=== PATIENT | male | born 1945 | race Two or more races ===

== ENCOUNTER 2016-07-31 15:30 | Inpatient (IN) | payer OTHER, MEDICAID ==
[~2016-07-31] VITALS: Ht 162.6 cm; Wt 76.2 kg
--- NOTE | 2016-07-31 15:31 | NUR ---
AAOX3, BIBRA 99 C/O SOB SPO2=93% ON RA, ALSO C/O RIGHT SIDED CP SINCE LAST NIGHT. BREATHING TREATMENT X 1 IN THE FIELD. SPO2=97% AFTER THE BREATHING TREATMENT. PLACED ON MONITOR AND HOSPITAL GOWN. DR TOM AT FOR EVAL.
[2016-07-31] MEDS ORDERED: ALBUTEROL FS 2.5 MG/3 ML VIAL.NEB ONE (15:38)
[2016-07-31] MEDS ORDERED: IPRATROPIUM NEB FS 0.5 MG/2.5 ML AMPUL.NEB ONE (15:39)
--- NOTE | 2016-07-31 15:47 | NUR ---
BREATHING TREATMENT AT
[2016-07-31 15:58] LABS: BASOPHILS # (AUTO) 0.1 /CMM (0.0-0.2); BASOPHILS % (AUTO) 0.9 % (0.0-2.0); EOSINOPHILS # (AUTO) 0.5 /CMM (0.0-0.7); EOSINOPHILS % (AUTO) 6.3 % (0.0-6.0); HEMATOCRIT 39 % (39-51); HEMOGLOBIN 13.2 g/dL (13.5-17.5); LYMPHOCYTES # (AUTO) 3.4 /CMM (0.8-4.8); LYMPHOCYTES % (AUTO) 42.4 % (20.0-44.0); MEAN CORPUSCULAR HEMOGLOBIN 31 PG (26.0-33.0); MEAN CORPUSCULAR HGB CONC 34 g/dl (31.0-36.0); MEAN CORPUSCULAR VOLUME 90 fL (80-96); MONOCYTES # (AUTO) 0.8 /CMM (0.1-1.30); MONOCYTES % (AUTO) 9.2 % (2.0-12.0); NEUTROPHILS # (AUTO) 3.4 /CMM (1.8-8.9); NEUTROPHILS % (AUTO) 41.2 % (43.0-81.0); PLATELET COUNT (AUTO) 291 /CMM (150-450); RDW COEFFICIENT OF VARIATION 15.1 (11.5-15.0); RED BLOOD CELL COUNT(AUTO) 4.33 MIL/uL (4.5-6.0); WHITE BLOOD COUNT (AUTO) 8.2 K/uL (4.3-11.0)
[2016-07-31] MEDS ORDERED: ALBUTEROL FS 2.5 MG/3 ML VIAL.NEB NEB ONE (16:00)
[2016-07-31] MEDS ORDERED: IPRATROPIUM NEB FS 0.5 MG/2.5 ML AMPUL.NEB NEB ONE (16:00)
[2016-07-31 16:01] LABS: CALCIUM, SERUM 8.7 mg/dL (8.5-10.1); CARBON DIOXIDE 23 mmol/L (21-32); CHLORIDE 104 mmol/L (98-107); CREATININE 1.4 mg/dL (0.6-1.3); GLUCOSE 115 mg/dL (74-106); SODIUM SERUM 137 mmol/L (136-145); UREA NITROGEN, BLOOD 20 mg/dL (7-18)
[2016-07-31 16:05] LABS: INR 1.01 (0.87-1.13); PROTHROMBIN TIME 10.5 SECS (9.5-12.7)
[2016-07-31 16:10] LABS: TROPONIN I < 0.017 ng/mL (0.00-0.056)
[2016-07-31 16:14] LABS: ALANINE AMINOTRANSFERASE 40 U/L (12-78); ALBUMIN 3.8 g/dL (3.4-5.0); ALKALINE PHOSPHATASE 80 U/L (46-116); ASPARTATE AMINOTRANSFERASE 22 U/L (15-37); B-TYPE NATRIURETIC PEPTIDE 26 PG/ML (0-125); BILIRUBIN,DIRECT 0.1 mg/dL (0.0-0.2); BILIRUBIN,TOTAL 0.2 mg/dL (0.2-1.0); TOTAL PROTEIN, SERUM 7.8 g/dL (6.4-8.2)
--- NOTE | 2016-07-31 16:53 | NUR ---
PAGED LATHE SANDER FOR PANEL JONNIE MARCUS
--- NOTE | 2016-07-31 16:53 | NUR ---
CALLED NURSING DIRECTOR OF CARDIOLOGY SERVICE LINE FOR TELE BED
--- NOTE | 2016-07-31 17:06 | NUR ---
MED RECON/PATTERN CHAIN BUILDER NOTE: UNABLE TO UPDATE MED RECON AT THIS TIME. PATIENT UNABLE TO RECALL MEDS. SPOKE WITH CAREGIVER AT BEDSIDE AND WILL BRING ALL MEDICATION SUPPLY FROM HOME. CALLED AND FAXED AUTHORIZATION TO DISCLOSE HEALTH INFORMATION TO [facility]. WAITING FOR REPLY.
--- NOTE | 2016-07-31 17:35 | NUR ---
PATIENT TRANSPORTED FOR CT
--- NOTE | 2016-07-31 17:41 | NUR ---
TELE [phone]
[2016-07-31] MEDS ORDERED: GABA-534 PO (18:06)
[2016-07-31] MEDS ORDERED: BENA40TA2 PO (18:06)
[2016-07-31] MEDS ORDERED: FLUC100T8 PO (18:06)
[2016-07-31] MEDS ORDERED: CITA20TA19 PO (18:06)
[2016-07-31] MEDS ORDERED: CHOL100044 PO (18:06)
[2016-07-31] MEDS ORDERED: TOPI-37 PO (18:06)
[2016-07-31] MEDS ORDERED: SOLI5TAB PO (18:06)
[2016-07-31] MEDS ORDERED: VITA1TAB56 PO (18:06)
[2016-07-31] MEDS ORDERED: ABAC1TAB15 PO (18:06)
[2016-07-31] MEDS ORDERED: CARV3.122 PO (18:06)
[2016-07-31] MEDS ORDERED: OMEG500C PO (18:06)
[2016-07-31] MEDS ORDERED: MIRT15TA7 PO (18:06)
[2016-07-31] MEDS ORDERED: PANT40TA4 PO (18:06)
[2016-07-31] MEDS ORDERED: BUPR150T10 PO (18:06)
[2016-07-31] MEDS ORDERED: METF500T4 PO (18:06)
[2016-07-31] MEDS ORDERED: ROSU20TA PO (18:06)
[2016-07-31] MEDS ORDERED: ASPI-605 PO (18:06)
--- NOTE | 2016-07-31 18:06 | NUR ---
REPORT GIVEN TO MARLINE MARCUS FOR GERARDO TELE 327
--- NOTE | 2016-07-31 18:23 | NUR ---
PARATRANSIT OPERATOR NOTES PATIENT RECEIVED FROM ER. NO SOB OR DISTRESS NOTED AT THIS TIME. PATIENT DENIES PAIN. PATIENT ORIENTED TO ROOM AND CALL LIGHT. BELONGINGS CHECKED AND ACCOUNTED FOR. HEART RATE SR 86. BED IN A LOW POSITION, CALL LIGHT WITHIN PATIENT REACH. WILL CONTINUE TO MONITOR.
[2016-07-31 18:28] VITALS: BP 118/77
--- NOTE | 2016-07-31 19:30 | NUR ---
TELE DRAW HAND INITIAL NOTES RECEIVED REPORT FRO BRENT NURSE AMRIT, CHECKED PT HE'S AWAKE AND ALERT WATCHING TV AT THIS TIME. DENIES ANY PAIN OR ANY DISCOMFORT. HE STATES HE'S HUNGRY OFFERED SANDWICH AND JUICE AND HE SAID "OK ". ASSESSMENT DONE AND RECORDED. AWARE WHERE HE AT AND HE STATED TOO THAT HE'S HERE LAST WEEK ONLY. O2 STARTED VIA NC AT 2 LITERS AND HE STATES "THANK YOU FEEL MUCH BETTER. ENCOURAGE HIM TO USED THE CALL LIGHT SYSTEM IF HE NEEDS SOME HELPED. KEPT HIM WARM AND COMFORTABLE AT ALL TIMES. ISOLATION PRECAUTION IMPLEMENTED AND OBSERVED. PLACE CALL LIGHT AT REACH.
[2016-07-31 20:00] VITALS: BP 109/68
[2016-07-31] MEDS ORDERED: ONDANSETRON HCL/PF 4 MG/2 ML VIAL IVP PRN (20:30)
[2016-07-31] MEDS ORDERED: ACETAMINOPHEN 325 MG TABLET PO PRN (20:30)
[2016-07-31] MEDS ORDERED: SUCRALFATE 1 G/10 ML UDC PO ONE (21:00)
[2016-07-31] MEDS ORDERED: IV SET PRIMARY PUMP SET 1 EA INFUS.SET MC ONE (21:27)
[2016-07-31] MEDS ORDERED: SECONDARY IV SET 1 EA INFUS.SET MC ONE (21:27)
[2016-07-31] MEDS: TOPIRAMATE 100 MG TABLET PO SCH (21:54)
[2016-07-31] MEDS: AZITHROMYCIN 250 MG TABLET PO SCH (21:54)
[2016-07-31] MEDS: MIRTAZAPINE 15 MG TABLET PO SCH (21:54)
[2016-07-31] MEDS: PANTOPRAZOLE 40 MG TABLET.DR PO SCH (21:55)
[2016-07-31] MEDS: GABAPENTIN 300 MG CAPSULE PO SCH (21:55)
--- NOTE | 2016-07-31 21:55 | NUR ---
GLAUCOMA SPECIALIST/NOTES ROUTINE MEDS GIVEN ORDERED. TOLERATED WELL AND EDUCATED PT THE POSSIBLE SIDE EFFECT OF HIS MEDICATION . IVF NS STARTED ALSO NS AT 75ML/HR . KEPT HIM COMFORTABLE AT ALL TIMES. TELE SR PER MONITOR.
[2016-07-31] MEDS: ENOXAPARIN SODIUM 40 MG/0.4 ML DISP.SYRIN SQ SCH (21:56)
[2016-07-31] MEDS: IV NS 0.9% 1,000 ML IV PRN (21:57)
[2016-07-31] MEDS ORDERED: ATORVASTATIN 10 MG TABLET PO SCH (22:00)
[2016-07-31] MEDS ORDERED: ZOLPIDEM TARTRATE 5 MG TABLET PO PRN (22:00)
[2016-07-31] MEDS: CEFTRIAXONE 1 G in IV D5W 50 ML IV SCH (22:24)
--- NOTE | 2016-07-31 22:30 | NUR ---
PATIENT SERVICE SPECIALIST/NOTES AMBIEN GIVEN PER PT REQUESTED AND SAFETY PRECAUTION APPLIED. EDUCATE PT REGARDING HIS MEDICATION AND HE UNDERSTOOD WELL. WILL CONTINUE TO MONITOR.
[2016-08-01] VITALS: BP 138/78
--- NOTE | 2016-08-01 | NUR ---
SATELLITE PROJECT SITE MONITOR/NOTES PT SLEEPING AT THIS TIME BUT AROUSES TO TOUCH AND STIMULI. NO SOB NOTED. IVF STILL INFUSING ON HIS LEFT HAND, ROCEPHIN WAS DONE , NO ADVERSE REACTION NOTED. TELE SR PER MONITOR. KEPT HIM WARM AND COMFORTABLE AT ALL TIMES WILL CONTINUE TO MONITOR,PLACE CALL LIGHT AT REACH.
[2016-08-01] MEDS: ALBUTEROL FS 2.5 MG/0.5 ML VIAL.NEB NEB SCH ×5 (02:19→23:07)
[2016-08-01] MEDS: IPRATROPIUM NEB FS 0.5 MG/2.5 ML AMPUL.NEB NEB SCH ×5 (02:19→23:07)
[2016-08-01 04:37] VITALS: BP 120/68
--- NOTE | 2016-08-01 06:51 | NUR ---
MICROSOFT DYNAMICS AX DEVELOPER/CLOSING NOTES PT BACK TO SLEEP AFTER NEW IV LINE RE-INSERTED ON HIS RIGHT FOREARM GAUGE 22 AFTER PT ACCIDENTALLY PULLED OUT HIS IV LINE IN HIS LEFT HAND. IVF STILL INFUSING. STABLE MONET THE NIGHT AND SLEPT WELL. ALL DUE MEDS GIVEN AND ALL NEEDS MET. TELE SR PER MONITOR. KEPT HIM WARM AND COMFORTABLE AT ALL TIMES. PLACE CALL LIGHT AT REACH. ENDORSE TO AM NURSE FOR CONTINUITY OF CARE.
[2016-08-01] MEDS ORDERED: PANTOPRAZOLE 40 MG TABLET.DR PO SCH ×2 (07:30)
[2016-08-01 08:00] VITALS: BP 125/70
--- NOTE | 2016-08-01 08:00 | NUR ---
RN OPENING NOTES RECEIVED PATIENT IN BED SLEEPING, AROUSES EASILY. ALERT AND ORIENTED X3. ON OXYGEN 2L VIA NC. RESPIRATIONS EVEN AND UNLABORED. NO ACUTE DISTRESS NOTED. NO SOB NOTED. IV SITE INTACT AND PATENT. BED IN LOWEST POSITION, SEMIFOWLERS. CALL LIGHT WITHIN REACH. WILL CONTINUE TO MONITOR.
[2016-08-01 08:03] LABS: BASOPHILS % (AUTO) 0.5 % (0.0-2.0); EOSINOPHILS # (AUTO) 0.4 /CMM (0.0-0.7); EOSINOPHILS % (AUTO) 5.4 % (0.0-6.0); HEMATOCRIT 35 % (39-51); HEMOGLOBIN 11.9 g/dL (13.5-17.5); LYMPHOCYTES # (AUTO) 2.5 /CMM (0.8-4.8); LYMPHOCYTES % (AUTO) 34.9 % (20.0-44.0); MEAN CORPUSCULAR HEMOGLOBIN 31 PG (26.0-33.0); MEAN CORPUSCULAR HGB CONC 34 g/dl (31.0-36.0); MEAN CORPUSCULAR VOLUME 90 fL (80-96); MONOCYTES # (AUTO) 0.8 /CMM (0.1-1.30); MONOCYTES % (AUTO) 11.5 % (2.0-12.0); NEUTROPHILS # (AUTO) 3.5 /CMM (1.8-8.9); NEUTROPHILS % (AUTO) 47.7 % (43.0-81.0); PLATELET COUNT (AUTO) 245 /CMM (150-450); RDW COEFFICIENT OF VARIATION 15.8 (11.5-15.0); RED BLOOD CELL COUNT(AUTO) 3.87 MIL/uL (4.5-6.0); WHITE BLOOD COUNT (AUTO) 7.3 K/uL (4.3-11.0)
[2016-08-01 08:48] LABS: THYROID STIMULATING HORMONE 3.514 uIU/mL (0.358-3.74)
[2016-08-01] MEDS ORDERED: SOLIFENACIN SUCCINATE 5 MG TABLET PO SCH (09:00)
[2016-08-01] MEDS ORDERED: predniSONE 20 MG TABLET PO SCH (09:00)
[2016-08-01 09:04] LABS: ALBUMIN 3.7 g/dL (3.4-5.0); BILIRUBIN,TOTAL 0.2 mg/dL (0.2-1.0); CALCIUM, SERUM 8.8 mg/dL (8.5-10.1); CREATININE 1.4 mg/dL (0.6-1.3); MAGNESIUM 2.1 mg/dL (1.8-2.4); PHOSPHORUS 4.7 mg/dL (2.5-4.9); POTASSIUM 3.9 mmol/L (3.5-5.1); TOTAL PROTEIN, SERUM 7.4 g/dL (6.4-8.2)
[2016-08-01] MEDS: ASPIRIN EC 81 MG TABLET.DR PO SCH (09:57)
[2016-08-01] MEDS: CHOLECALCIFEROL 1,000 UNIT TABLET (VIT D3) PO SCH (09:59)
[2016-08-01] MEDS: METFORMIN 500 MG TABLET PO SCH (09:59)
[2016-08-01] MEDS: buPROPion SR 150 MG TABLET.ER PO SCH (09:59)
[2016-08-01] MEDS: CITALOPRAM HYDROBROMIDE 20 MG TABLET PO SCH (10:00)
[2016-08-01] MEDS: CARVEDILOL 3.125 MG TABLET PO SCH ×2 (10:02→21:36)
[2016-08-01] MEDS: BENAZEPRIL HCL 20 MG TABLET PO SCH (10:04)
[2016-08-01] MEDS: PANTOPRAZOLE 40 MG TABLET.DR PO SCH ×2 (10:05→21:35)
[2016-08-01] MEDS: TOPIRAMATE 100 MG TABLET PO SCH ×2 (10:06→16:34)
[2016-08-01] MEDS: FLUTICASONE/SALMETEROL DISKUS IH SCH ×2 (10:18→16:34)
[2016-08-01] MEDS ORDERED: LOSARTAN POTASSIUM 50 MG TABLET PO SCH (10:36)
[2016-08-01] MEDS: OXYBUTYNIN CHLORIDE 5 MG TABLET PO SCH ×2 (11:51→21:35)
[2016-08-01 16:00] VITALS: BP 107/76
[2016-08-01] MEDS: TRIUMEQ 600/50/300 PO SCH (16:34)
--- NOTE | 2016-08-01 18:08 | NUR ---
RN CLOSING NOTES PATIENT ON BED RESTING, AWAKE, A&OX3. RESPIRATIONS EVEN AND UNLABORED, NO ACUTE DISTRESS NOTED. VITAL SIGNS STABLE. ALL NEEDS ATTENDED AND PROVIDED. BED IN LOWEST POSITION, SEMIFOWLERS. CALL LIGHT WITHIN REACH. WILL ENDORSE TO GENERAL II FARMWORKER RN FOR CONTINUITY OF CARE.
[2016-08-01] MEDS: IV NS 0.9% 1,000 ML IV PRN (18:46)
--- NOTE | 2016-08-01 19:30 | NUR ---
MS/RN OPENING NOTES PT AWAKE, A/OX3. CURRENTLY RECEIVING BREATHING TX. BREATHING EVEN AND UNLABORED. DENIES CHEST PAIN/SOB AT THIS TIME. IV TO RFA PATENT AND INTACT RUNNING IVF ORDERED. PT TO BE NPO POST MIDNIGHT FOR EGD IN AM. CONSENTS SIGNED AND FLAGGED IN THE CHART, HOWEVER PT WANTS TO SPEAK WITH MD ABOUT SIGNING CONSENT FOR BLOOD. EXPLANATION AND RISKS/BENEFITS OF BLOOD TRANSFUSION DISCUSSED. PT PREFERS TO SPEAK WITH MD DUE TO "HIS BLOOD CONDITION". BED IN LOW/LOCKED POSITION WITH CALL LIGHT IN REACH. BED RAILS UPX2. WILL CONTINUE TO MONITOR
[2016-08-01 20:00] VITALS: BP 117/71
[2016-08-01] MEDS: ENOXAPARIN SODIUM 40 MG/0.4 ML DISP.SYRIN SQ SCH (21:00)
[2016-08-01] MEDS: CEFTRIAXONE 1 G in IV D5W 50 ML IV SCH (21:33)
[2016-08-01] MEDS: GABAPENTIN 300 MG CAPSULE PO SCH (21:34)
[2016-08-01] MEDS: AZITHROMYCIN 250 MG TABLET PO SCH (21:34)
[2016-08-01] MEDS: MIRTAZAPINE 15 MG TABLET PO SCH (21:35)
--- NOTE | 2016-08-01 21:56 | NUR ---
MS/RN NOTES NON-ADMINISTERED SCHEDULED LOVENOX. PT TO HAVE EGD IN AM.
[2016-08-01] MEDS ORDERED: QUETIAPINE FUMARATE 25 MG TABLET PO ONE (22:00)
[2016-08-02] MEDS: IPRATROPIUM NEB FS 0.5 MG/2.5 ML AMPUL.NEB NEB SCH ×7 (03:18→23:11)
[2016-08-02] MEDS: ALBUTEROL FS 2.5 MG/0.5 ML VIAL.NEB NEB SCH ×7 (03:18→23:11)
[2016-08-02 05:11] LABS: *BASOS 1 % (.); *EOS 4 % (.); *EOS, ABSOLUTE 0.2 x10E3/uL (0.0-0.4); *HCT 34.2 % (37.5-51.0); *HGB 11.3 g/dL (12.6-17.7); *IMMATURE GRANULOCYTES 1 % (.); *LYMPHOCYTES 19 % (.); *LYMPHS, ABSOLUTE 1.3 x10E3/uL (0.7-3.1); *MCH 29.9 pg (26.6-33.0); *MCV 91 fL (79-97); *MONOCYTES 7 % (.); *MONOS, ABSOLUTE 0.5 x10E3/uL (0.1-0.9); *NEUTROPHILS 68 % (.); *NEUTROPHILS, ABSOLUTE 4.6 x10E3/uL (1.4-7.0); *PLT 225 x10E3/uL (150-379); *RBC 3.78 x10E6/uL (4.14-5.80); *RDW 16.2 % (12.3-15.4)
--- NOTE | 2016-08-02 07:30 | NUR ---
MS RN NOTES RECEIVED PT AWAKE ALERT AND ORIENTED X3, VERBALLY RESPONSIVE. BREATHING EVEN AND NON LABORED. NPO MAINTAINED FOR EGD TODAY AT 10AM. WILL CONTINUE TO MONITOR.
--- NOTE | 2016-08-02 07:30 | NUR ---
MS/RN CLOSING NOTES PT ASLEEP, EASILY AROUSABLE. A/OX3, ON ROOM AIR, BREATHING EVEN AND UNLABORED. NO S/S OF DISTRESS. NO COMPLAINTS OF CHEST PAIN AT THIS TIME. IV TO RFA PATENT AND INTACT RUNNING IVF ORDERED. PT TO HAVE EGD AT 1000 THIS AM, CONSENTS SIGNED AND FLAGGED IN THE CHART. PT WANTS TO SPEAK TO MD PRIOR TO SIGNED BLOOD TRANSFUSION CONSENT. PT REMAINS NPO SINCE MIDNIGHT. MADE PT COMFORTABLE THROUGHOUT SHIFT, ALL NEEDS MET AND ATTENDED. BED IN LOW/LOCKED POSITION WITH CALL LIGHT IN REACH. BED RAILS UPX2. ENDORSED TO AM SHIFT GERARDO.
[2016-08-02 08:00] VITALS: BP 123/80
[2016-08-02] MEDS: buPROPion SR 150 MG TABLET.ER PO SCH (09:00)
[2016-08-02] MEDS: CHOLECALCIFEROL 1,000 UNIT TABLET (VIT D3) PO SCH (09:00)
[2016-08-02] MEDS: TOPIRAMATE 100 MG TABLET PO SCH ×2 (09:00→17:20)
[2016-08-02] MEDS: FLUTICASONE/SALMETEROL DISKUS IH SCH ×2 (09:00→17:21)
[2016-08-02] MEDS: ASPIRIN EC 81 MG TABLET.DR PO SCH (09:00)
[2016-08-02] MEDS: OXYBUTYNIN CHLORIDE 5 MG TABLET PO SCH ×2 (09:00→17:20)
[2016-08-02] MEDS: CITALOPRAM HYDROBROMIDE 20 MG TABLET PO SCH (09:00)
[2016-08-02] MEDS: PANTOPRAZOLE 40 MG TABLET.DR PO SCH ×2 (09:00→21:22)
[2016-08-02] MEDS: TRIUMEQ 600/50/300 PO SCH (09:00)
[2016-08-02] MEDS: predniSONE 20 MG TABLET PO SCH (09:00)
[2016-08-02] MEDS: BENAZEPRIL HCL 20 MG TABLET PO SCH (09:00)
[2016-08-02] MEDS: CARVEDILOL 3.125 MG TABLET PO SCH ×2 (09:00→21:22)
[2016-08-02] MEDS: METFORMIN 500 MG TABLET PO SCH (09:00)
--- NOTE | 2016-08-02 09:40 | NUR ---
MS RN NOTES PT WENT DOWN FOR EGD IN STABLE CONDITION ACCOMPANIED BY TWO OR STAFF.
[2016-08-02] MEDS ORDERED: ANESTHESIA TRAY IN PYXIS 1 EA TRAY MC ONE (10:18)
[2016-08-02 10:30] VITALS: BP 119/79
--- NOTE | 2016-08-02 10:30 | NUR ---
MS RN NOTES PATIENT CAME BACK FROM OR S/P EGD. AWAKE, ALERT AND VERBALLY RESPONSIVE. POST OP ODERS CARRIED OUT. VITAL SIGNS BP 119/70, HR75, RR 19, O2 SAT 97% WITH O2 2 LPM VIA NC. WILL CONTINUE TO MONITOR.
[2016-08-02 11:00] VITALS: BP 121/69
[2016-08-02] MEDS ORDERED: METOCLOPRAMIDE HCL 10 MG TABLET PO SCH ×2 (11:00→17:00)
[2016-08-02 11:12] LABS: *% CD 8 POS. LYMPH 37.3 % (12.0-35.5); *ABSOLUTE CD 4 HELPER 351 /uL (359-1519); *ABSOLUTE CD 8 SUPPRESSOR 485 /uL (109-897); *CD4/CD8 RATIO 0.72 (0.92-3.72)
--- NOTE | 2016-08-02 12:00 | NUR ---
N NOTES CLEAR LIQUID DIET STARTED, TOLERATING WELL.
[2016-08-02] MEDS: METOCLOPRAMIDE HCL 10 MG TABLET PO SCH ×2 (12:30→17:20)
[2016-08-02 16:00] VITALS: BP 109/76
--- NOTE | 2016-08-02 19:07 | NUR ---
MS RN NOTES NEEDS ALL ATTENDED AND ANTICIPATED. ENDORSED TO INCOMING SHIFT FOR CONTINUITY OF CARE.
[2016-08-02 20:00] VITALS: BP 124/79
[2016-08-02] MEDS: AZITHROMYCIN 250 MG TABLET PO SCH (21:23)
[2016-08-02] MEDS: GABAPENTIN 300 MG CAPSULE PO SCH (21:23)
[2016-08-02] MEDS: MIRTAZAPINE 15 MG TABLET PO SCH (21:23)
[2016-08-02] MEDS: ENOXAPARIN SODIUM 40 MG/0.4 ML DISP.SYRIN SQ SCH (21:25)
[2016-08-02] MEDS: CEFTRIAXONE 1 G in IV D5W 50 ML IV SCH (21:30)
[2016-08-02] MEDS ORDERED: QUETIAPINE FUMARATE 100 MG TABLET ONE (22:11)
--- NOTE | 2016-08-02 22:26 | NUR ---
DR. ANDERSON ORDERED ONE TIME DOSE OF SEROQUEL 5OMG. CHARGE NURSE OVERIDE MED AND DISPENSE 100MG. ONLY 1/2 TAB WAS GIVEN TO PT.
[2016-08-02] MEDS ORDERED: QUETIAPINE FUMARATE 25 MG TABLET PO ONE (22:30)
[2016-08-03] MEDS: IPRATROPIUM NEB FS 0.5 MG/2.5 ML AMPUL.NEB NEB SCH ×6 (03:30→22:42)
[2016-08-03] MEDS: ALBUTEROL FS 2.5 MG/0.5 ML VIAL.NEB NEB SCH ×6 (03:30→22:42)
--- NOTE | 2016-08-03 03:51 | NUR ---
THE LAST ROUND OF TREATMENT 3:30 AM REFUSED BY PT BECAUSE HE WANTED TO SLEEP, SO Tx NOT GIVEN
[2016-08-03] MEDS ORDERED: IV NS 0.9% 1,000 ML ONE ×2 (05:51→21:40)
--- NOTE | 2016-08-03 07:30 | NUR ---
MS RN NOTES RECEIVED PT AWAKE ALERT AND ORIENTED X3, VERBALLY RESPONSIVE. BREATHING EVEN AND NON LABORED. WITH O2 AT 2LPM VIA NC TOLERATING WELL. ON CLEAR LIQUID DIET. WITH IVF'S INFUSING WELL ON HIS RFA #20. CALL LIGHT WITHIN REACH, BED IN LOW POSITION FOR SAFETY MEASURES. WILL CONTINUE TO MONITOR.
[2016-08-03 08:00] VITALS: BP 121/79
[2016-08-03 08:12] LABS: CALCIUM, SERUM 8.1 mg/dL (8.5-10.1); POTASSIUM 3.7 mmol/L (3.5-5.1)
[2016-08-03] MEDS: METFORMIN 500 MG TABLET PO SCH (09:00)
[2016-08-03] MEDS: PANTOPRAZOLE 40 MG TABLET.DR PO SCH ×2 (09:12→21:26)
[2016-08-03] MEDS: METOCLOPRAMIDE HCL 10 MG TABLET PO SCH ×3 (09:12→17:07)
[2016-08-03] MEDS: predniSONE 20 MG TABLET PO SCH (09:12)
[2016-08-03] MEDS: buPROPion SR 150 MG TABLET.ER PO SCH (09:13)
[2016-08-03] MEDS: OXYBUTYNIN CHLORIDE 5 MG TABLET PO SCH ×2 (09:13→17:07)
[2016-08-03] MEDS: BENAZEPRIL HCL 20 MG TABLET PO SCH (09:13)
[2016-08-03] MEDS: ASPIRIN EC 81 MG TABLET.DR PO SCH (09:13)
[2016-08-03] MEDS: CARVEDILOL 3.125 MG TABLET PO SCH ×2 (09:14→21:27)
[2016-08-03] MEDS: CHOLECALCIFEROL 1,000 UNIT TABLET (VIT D3) PO SCH (09:14)
[2016-08-03] MEDS: CITALOPRAM HYDROBROMIDE 20 MG TABLET PO SCH (09:14)
[2016-08-03] MEDS: TOPIRAMATE 100 MG TABLET PO SCH ×2 (09:14→17:07)
[2016-08-03] MEDS: FLUTICASONE/SALMETEROL DISKUS IH SCH ×2 (09:15→17:07)
[2016-08-03] MEDS: TRIUMEQ 600/50/300 PO SCH (09:17)
--- NOTE | 2016-08-03 15:00 | NUR ---
MS RN NOTES PT WENT DOWN FOR CT SCAN ABD/PELVIS WITHOUT CONTRAST ORDERED.
[2016-08-03 16:00] VITALS: BP 124/61
--- NOTE | 2016-08-03 18:28 | NUR ---
MS RN NOTES ALL NEEDS ATTENDED AND ANTICIPATED. ENDORSED TO INCOMING SHIFT FOR CONTINUITY OF CARE.
[2016-08-03 20:00] VITALS: BP 131/82
[2016-08-03] MEDS: GABAPENTIN 300 MG CAPSULE PO SCH (21:25)
[2016-08-03] MEDS: QUETIAPINE FUMARATE 25 MG TABLET PO SCH (21:26)
[2016-08-03] MEDS: ENOXAPARIN SODIUM 40 MG/0.4 ML DISP.SYRIN SQ SCH (21:28)
[2016-08-04] MEDS: IPRATROPIUM NEB FS 0.5 MG/2.5 ML AMPUL.NEB NEB SCH ×6 (03:18→23:30)
[2016-08-04] MEDS: ALBUTEROL FS 2.5 MG/0.5 ML VIAL.NEB NEB SCH ×6 (03:19→23:30)
--- NOTE | 2016-08-04 03:53 | NUR ---
pt iv was pulled out a new access on the left forearm #[id number] was placed by nurse and ivf continued
--- NOTE | 2016-08-04 07:30 | NUR ---
AM RN NOTE Received patient awake, A/O X3 verbally responsive. Resp even and non-labored. Denies any pain or discomfort at this time. IV site intact and patent. Will continue to monitor.
[2016-08-04 08:00] VITALS: BP 126/79
[2016-08-04] MEDS: PANTOPRAZOLE 40 MG TABLET.DR PO SCH ×2 (08:52→21:16)
[2016-08-04] MEDS: TOPIRAMATE 100 MG TABLET PO SCH ×2 (08:52→16:49)
[2016-08-04] MEDS: CHOLECALCIFEROL 1,000 UNIT TABLET (VIT D3) PO SCH (08:52)
[2016-08-04] MEDS: TRIUMEQ 600/50/300 PO SCH (08:52)
[2016-08-04] MEDS: METFORMIN 500 MG TABLET PO SCH (08:52)
[2016-08-04] MEDS: ASPIRIN EC 81 MG TABLET.DR PO SCH (08:52)
[2016-08-04] MEDS: METOCLOPRAMIDE HCL 10 MG TABLET PO SCH ×3 (08:52→16:49)
[2016-08-04] MEDS: buPROPion SR 150 MG TABLET.ER PO SCH (08:52)
[2016-08-04] MEDS: CARVEDILOL 3.125 MG TABLET PO SCH ×2 (08:53→21:20)
[2016-08-04] MEDS: BENAZEPRIL HCL 20 MG TABLET PO SCH (08:53)
[2016-08-04] MEDS: OXYBUTYNIN CHLORIDE 5 MG TABLET PO SCH ×2 (08:53→16:49)
[2016-08-04] MEDS: FLUTICASONE/SALMETEROL DISKUS IH SCH ×2 (08:55→16:49)
[2016-08-04] MEDS: CITALOPRAM HYDROBROMIDE 20 MG TABLET PO SCH (09:02)
--- NOTE | 2016-08-04 10:00 | NUR ---
AM RN NOTE Patient signed consent for Lexiscan, consent placed in chart.
--- NOTE | 2016-08-04 10:45 | NUR ---
AM RN NOTE Diet order changed per Dr. Reynaldo Coppola.
[2016-08-04 16:00] VITALS: BP 124/70
--- NOTE | 2016-08-04 18:28 | NUR ---
AM RN NOTE Patient resting in his bed, no acute distress noted. IV site intact and patent, continue on IV hydration as ordered. Will endorse care to next shift.
[2016-08-04 20:00] VITALS: BP 154/89
--- NOTE | 2016-08-04 20:00 | NUR ---
MS RN NOTES ALERT AND ORIENTED. AMBULATORY. ON OXYGEN AT 2LPM VIA NC. NO SOB NOTED. DENIES ANY CHESTPAIN/PAIN / DISCOMFORT. VERBALLY RESPONSIVE TO STIMULI. LEFT FOREARM IV ACCESS NOTED WITH IVF INFUSING WELL AT 75 CC/HR. NO S/S OF FLUID OVERLOAD. ALL NEEDS ANTICIPATED. SAFETY MEASURES MAINTAINED. WILL CONTINUE TO MONITOR.
[2016-08-04] MEDS: QUETIAPINE FUMARATE 25 MG TABLET PO SCH (21:17)
[2016-08-04] MEDS: GABAPENTIN 300 MG CAPSULE PO SCH (21:17)
[2016-08-04] MEDS: ENOXAPARIN SODIUM 40 MG/0.4 ML DISP.SYRIN SQ SCH (21:18)
[2016-08-04 22:00] VITALS: BP 154/89
[2016-08-04 22:08] LABS: CMV, IgG >10.00 U/mL (0.00-0.59); CMV, IgM <30.0 AU/mL (0.0-29.9)
[2016-08-05] MEDS: ALBUTEROL FS 2.5 MG/0.5 ML VIAL.NEB NEB SCH ×3 (02:34→11:22)
[2016-08-05] MEDS: IPRATROPIUM NEB FS 0.5 MG/2.5 ML AMPUL.NEB NEB SCH ×3 (02:34→11:22)
[2016-08-05] MEDS ORDERED: IV SET PRIMARY PUMP SET 1 EA INFUS.SET MC ONE (05:53)
[2016-08-05] MEDS: IV NS 0.9% 1,000 ML IV PRN (06:00)
--- NOTE | 2016-08-05 06:51 | NUR ---
MS RN NOTES NO CHANGE OF CONDITION THROUGHOUT THE SHIFT. ALL NEEDS ANTICIPATED. KEPT CLEAN AND DRY.SAFETY MEASURES MAINTAINED. WILL ENDORSE TO MORNING SHIFT.
[2016-08-05 08:00] VITALS: BP_SYST 117; BP_SYST 182; BP_DIAS 111; BP_DIAS 75
--- NOTE | 2016-08-05 08:00 | NUR ---
MS RN NOTES PATIENT TRANSFERRED TO HAVE MAUREEN SCAN. PATIENT NPO. IN STABLE CONDITION. PERIPHERAL IV INTACT PATENT. WILL CONTINUE TO MONITOR.
[2016-08-05] MEDS ORDERED: REGADENOSON 0.4 MG/5 ML DISP.SYRIN IVP ONE (09:00)
[2016-08-05] MEDS: OXYBUTYNIN CHLORIDE 5 MG TABLET PO SCH (09:44)
[2016-08-05] MEDS: TRIUMEQ 600/50/300 PO SCH (09:44)
[2016-08-05] MEDS: ASPIRIN EC 81 MG TABLET.DR PO SCH (09:44)
[2016-08-05] MEDS: PANTOPRAZOLE 40 MG TABLET.DR PO SCH (09:44)
[2016-08-05] MEDS: METOCLOPRAMIDE HCL 10 MG TABLET PO SCH ×2 (09:44→12:19)
[2016-08-05] MEDS: buPROPion SR 150 MG TABLET.ER PO SCH (09:44)
[2016-08-05] MEDS: TOPIRAMATE 100 MG TABLET PO SCH (09:44)
[2016-08-05 09:45] VITALS: BP 182/111
[2016-08-05] MEDS: CITALOPRAM HYDROBROMIDE 20 MG TABLET PO SCH (09:45)
[2016-08-05] MEDS: METFORMIN 500 MG TABLET PO SCH (09:45)
[2016-08-05] MEDS: BENAZEPRIL HCL 20 MG TABLET PO SCH (09:45)
[2016-08-05] MEDS: CARVEDILOL 3.125 MG TABLET PO SCH (09:45)
[2016-08-05] MEDS: CHOLECALCIFEROL 1,000 UNIT TABLET (VIT D3) PO SCH (09:45)
[2016-08-05] MEDS: FLUTICASONE/SALMETEROL DISKUS IH SCH (09:46)
--- NOTE | 2016-08-05 10:00 | NUR ---
MS RN NOTES PATIENT RETURNED FROM NUCLEAR MEDICINE ALL DUE MEDICATIONS ADMINISTERED. PATIENT IN NO DISTRESS. WILL CONTINUE TO MONITOR. PATIENT IN NO DISTRESS.
--- NOTE | 2016-08-05 12:00 | NUR ---
MS RN NOTES PATIENT SEEN AND EVALUATED BY DR. HIGGINS ORDERS NOTED AND CARRIED OUT.
--- NOTE | 2016-08-05 14:20 | NUR ---
MS RN NOTES PATIENT DISCHARGED HOME WITH CAREGIVER. IN STABLE CONDITION. DISCHARGE INSTRUCTIONS PROVIDED VERBALIZED UNDERSTANDING. MD AWARE OF ALL ABNORMAL LABS. DISCHARGE PROTOCOL FOLLOWED. INSTRUCTIONS PROVIDED TO FOLLOW UP WITH DR. MOE IN 1 WEEK ADDRESS AND PHONE NUMBER PROVIDED. PRESCRIPTION PROVIDED. ALL BELONGINGS ACCOUNTED FOR. BELONGING LIST SIGNED. IV REMOVED WITH MINIMAL BLEEDING NOTED. ID BAND REMOVED. PATIENT ESCORTED TO CAR BY THERMAL CUTTER HAND.
[2016-08-06] MEDS ORDERED: FLUCONAZOLE (100 MG) 100 MG TABLET PO SCH (09:00)
== END 2016-08-05 14:15 | disposition home or self-care (01) | DRG 190 ==
LOC: ER 15:32 → TELE 17:56 → MED 08-01 08:44
PROVIDERS: ADMIT Nurse Practitioner Acute Care; ATTEND Nurse Practitioner Acute Care
PROC: 0DB68ZX Excision of Stomach, Via Natural or Artificial Opening Endoscopic, Diagnostic (ICD-10-PCS; principal; 2016-08-02 10:00)
DX: J44.1 Chronic obstructive pulmonary disease with (acute) exacerbation (principal); I71.00 Dissection of unspecified site of aorta; K58.9 Irritable bowel syndrome, unspecified; K29.70 Gastritis, unspecified, without bleeding; F41.9 Anxiety disorder, unspecified; F32.9 Major depressive disorder, single episode, unspecified; E78.5 Hyperlipidemia, unspecified; N40.0 Benign prostatic hyperplasia without lower urinary tract symptoms; F03.90 Unspecified dementia, unspecified severity, without behavioral disturbance, psychotic disturbance, mood disturbance, and anxiety; M50.30 Other cervical disc degeneration, unspecified cervical region; M19.90 Unspecified osteoarthritis, unspecified site; R07.9 Chest pain, unspecified; K30 Functional dyspepsia; Z86.19 Personal history of other infectious and parasitic diseases; E29.1 Testicular hypofunction; G47.00 Insomnia, unspecified; I10 Essential (primary) hypertension; Z79.899 Other long term (current) drug therapy; Z86.010 Personal history of colon polyps; Z85.46 Personal history of malignant neoplasm of prostate; Z87.891 Personal history of nicotine dependence; K31.84 Gastroparesis
CPT/HCPCS: 36415; 71010-TC; 80048-TC; 80053-TC; 80061-TC; 80076-TC; 82962-TC; 83605-TC; 83615-TC; 83735-TC; 83880; 84100-TC; 84443-TC; 84484-TC; 85025-TC; 85730-TC; 86360; 86644; 86645; 87040-TC; 87081-TC; 87496; 88305-TC; 88313-TC; 88342; 93307-TC; 94799-TC; A4606; A6402; A9502; J0696; J1650; J2001; J2704; J2785; J7030; J7060; J8597; Z7610

== ENCOUNTER 2016-08-30 16:21 | Inpatient (IN) | payer OTHER, MEDICAID ==
[~2016-08-30] VITALS: Ht 162.6 cm; Wt 74.4 kg
[2016-08-30] VITALS (7 sets, daily range): BP systolic 96–135; BP diastolic 71–86
[~2016-08-30 16:21] MED LIST: ABAC1TAB15 PO; ASPI-605 PO; BENA40TA2 PO; BUPR150T10 PO; CARV3.122 PO; CHOL100044 PO; CITA20TA19 PO; FLUC100T8 PO; GABA-534 PO; METF500T4 PO; MIRT15TA7 PO; OMEG500C PO; PANT40TA4 PO; ROSU20TA PO; SOLI5TAB PO; TOPI-37 PO; VITA1TAB56 PO
--- NOTE | 2016-08-30 16:21 | NUR ---
BIB RA 88 FROM HOME, ALTERED,AGITATED,BLOOD SUGAR 45 AND WENT UP TO 206. PLACED ON MONITOR. AWAITING MD ORDER
[2016-08-30] MEDS ORDERED: ACETAMINOPHEN 650 MG/SUPP.RECT RC ONE ×2 (16:30→17:07)
[2016-08-30] MEDS ORDERED: IV NS 0.9% 1,000 ML IV ONE (16:30)
[2016-08-30] MEDS ORDERED: IV NS 0.9% 1,000 ML BAG IV ONE ×2 (16:30→19:00)
[2016-08-30] MEDS ORDERED: LORAZEPAM INJ 2 MG/ML VIAL ONE ×2 (16:33→17:12)
[2016-08-30] MEDS ORDERED: IV SET PRIMARY PUMP SET 1 EA INFUS.SET MC ONE ×4 (16:41→20:44)
[2016-08-30] MEDS ORDERED: IV SET PRIMARY 1 EA INFUS.SET MC ONE (16:41)
[2016-08-30] MEDS ORDERED: IV NS 0.9% 2,000 ML ONE (16:41)
--- NOTE | 2016-08-30 16:42 | NUR ---
CALLED NURSING SUP. FOR ICU BED
[2016-08-30 16:44] LABS: BASOPHILS # (AUTO) 0.5 /CMM (0.0-0.2); BASOPHILS % (AUTO) 2.6 % (0.0-2.0); EOSINOPHILS # (AUTO) 0.1 /CMM (0.0-0.7); EOSINOPHILS % (AUTO) 0.4 % (0.0-6.0); HEMATOCRIT 37 % (39-51); HEMOGLOBIN 12.2 g/dL (13.5-17.5); LYMPHOCYTES # (AUTO) 1.9 /CMM (0.8-4.8); LYMPHOCYTES % (AUTO) 10.2 % (20.0-44.0); MEAN CORPUSCULAR HEMOGLOBIN 30 PG (26.0-33.0); MEAN CORPUSCULAR HGB CONC 33 g/dl (31.0-36.0); MEAN CORPUSCULAR VOLUME 91 fL (80-96); MONOCYTES # (AUTO) 0.8 /CMM (0.1-1.30); NEUTROPHILS # (AUTO) 15.5 /CMM (1.8-8.9); NEUTROPHILS % (AUTO) 82.8 % (43.0-81.0); PLATELET COUNT (AUTO) 344 /CMM (150-450); RDW COEFFICIENT OF VARIATION 15.6 (11.5-15.0); RED BLOOD CELL COUNT(AUTO) 4.02 MIL/uL (4.5-6.0); WHITE BLOOD COUNT (AUTO) 18.8 K/uL (4.3-11.0)
[2016-08-30 16:56] LABS: INR 1.03 (0.87-1.13); PROTHROMBIN TIME 10.7 SECS (9.5-12.7)
--- NOTE | 2016-08-30 16:59 | NUR ---
PT CAN NOT STOP MOVING AROUND FOR CT HEAD OR XRAY. DR. TOM IS AWARE. ER WILL CALL WHEN READY.
[2016-08-30] MEDS ORDERED: VANCOMYCIN 1 GM in IV D5W 250 ML IV ONE ×2 (17:00→19:00)
[2016-08-30] MEDS ORDERED: MEROPENEM 1,000 MG in IV NS 0.9% 100 ML IV ONE (17:00)
[2016-08-30] MEDS ORDERED: LORAZEPAM INJ 2 MG/ML VIAL IV ONE ×2 (17:00→17:30)
[2016-08-30] MEDS ORDERED: ACYCLOVIR IV 1 GM in IV D5W 250 ML IV ONE (17:00)
[2016-08-30 17:05] LABS: CALCIUM, SERUM 8.7 mg/dL (8.5-10.1); CARBON DIOXIDE 19 mmol/L (21-32); CHLORIDE 104 mmol/L (98-107); CREATININE 1.9 mg/dL (0.6-1.3); GLUCOSE 99 mg/dL (74-106); POTASSIUM 5.4 mmol/L (3.5-5.1); SODIUM SERUM 141 mmol/L (136-145); UREA NITROGEN, BLOOD 42 mg/dL (7-18)
[2016-08-30 17:10] LABS: ALANINE AMINOTRANSFERASE 36 U/L (12-78); ALBUMIN 4.5 g/dL (3.4-5.0); ALKALINE PHOSPHATASE 73 U/L (46-116); ASPARTATE AMINOTRANSFERASE 60 U/L (15-37); BILIRUBIN,DIRECT 0.3 mg/dL (0.0-0.2); BILIRUBIN,TOTAL 0.8 mg/dL (0.2-1.0); TOTAL PROTEIN, SERUM 8.3 g/dL (6.4-8.2)
[2016-08-30 17:30] LABS: BAND % (MANUAL) 3 % (0.0-5.0); EOSINOPHILS % (MANUAL) 1 % (0-4); LYMPHOCYTES % (MANUAL) 12 % (16-48); MONOCYTES % (MANUAL) 5 % (0-11.0); NEUTROPHILS % (MANUAL) 79 (42-76)
[2016-08-30 17:44] LABS: CREATINE KINASE MB 11.4 ng/mL (0-3.6)
[2016-08-30] MEDS ORDERED: IV NS 0.9% 500 ML IV ONE ×2 (18:00→18:29)
[2016-08-30 18:19] LABS: APPEARANCE,URINE Clear (CLEAR); BILIRUBIN,URINE SMALL (NEGATIVE); BLOOD, URINE Small Ery/uL (NEGATIVE); COLOR,URINE Yellow (YELLOW); KETONES,URINE 15 (NEGATIVE); LEUKOCYTE ESTERASE ,URINE Negative (NEGATIVE); NITRITE, URINE Negative (NEGATIVE); PH,URINE 5.5 (5.0-8.0); PROTEIN,URINE 30 mg/dl (NEGATIVE); UGLUCOSE Negative (NEGATIVE); UROBILINOGEN,URINE 0.2 EU/dL (0.2)
[2016-08-30 18:33] LABS: BACTERIA,URINE Rare /HPF (None Seen); SQUAMOUS EPITHELIAL CELL,UR Few /HPF (None Seen); WBC,URINE 0-2 /HPF (0-3)
[2016-08-30 18:40] LABS: CSF GLUCOSE 47 mg/dL (40-70)
[2016-08-30] MEDS ORDERED: ONDANSETRON HCL/PF 4 MG/2 ML VIAL IVP PRN (19:00)
[2016-08-30] MEDS ORDERED: ACETAMINOPHEN 650 MG/20.3 ML UDC NG PRN (19:00)
[2016-08-30] MEDS ORDERED: CEFTRIAXONE 1 G in IV D5W 50 ML IV SCH (19:00)
[2016-08-30 19:03] LABS: CSF PROTEIN 307.3 mg/dL (15-45)
--- NOTE | 2016-08-30 19:04 | NUR ---
csf protein 307.3 reported by lab
--- NOTE | 2016-08-30 19:07 | NUR ---
RECEIVED REPORT FROM MARLINE MONSON FOR GERARDO.
--- NOTE | 2016-08-30 19:18 | NUR ---
REPORT GIVEN TO KARI HORAN
--- NOTE | 2016-08-30 19:30 | NUR ---
LAB AT BEDSIDE FOR BLOOD DRAW.
--- NOTE | 2016-08-30 19:43 | NUR ---
PT GOING TO ICU 260
--- NOTE | 2016-08-30 19:51 | NUR ---
REPORT GIVEN TO MARLINE MORA FOR GERARDO.
[2016-08-30 19:54] LABS: ALBUMIN 3.5 g/dL (3.4-5.0); BILIRUBIN,DIRECT 0.2 mg/dL (0.0-0.2); BILIRUBIN,TOTAL 0.6 mg/dL (0.2-1.0); TOTAL PROTEIN, SERUM 6.5 g/dL (6.4-8.2)
--- NOTE | 2016-08-30 20:21 | NUR ---
PT TRASNFERED PER ACLS PROTOCOL TO ICU BED 260
[2016-08-30 20:31] LABS: IRON, SERUM 49 ug/dl (50-175); TOTAL IRON BINDING CAPACITY 270 ug/dl (250-450)
[2016-08-30] MEDS ORDERED: IV D5W 50 ML IV ONE (20:33)
[2016-08-30] MEDS ORDERED: IV NS 0.9% 1,000 ML ONE ×2 (20:33→23:35)
[2016-08-30] MEDS ORDERED: CEFTRIAXONE 1 G VIAL ONE (20:33)
[2016-08-30] MEDS ORDERED: SECONDARY IV SET 1 EA INFUS.SET MC ONE ×2 (20:34→21:05)
[2016-08-30 20:35] LABS: ABG OXYGEN SATURATION 95.6 % (92.0-98.5); ABG PCO2 27.7 mmHg (35.0-45.0); ABG PH 7.292 (7.350-7.450); ABG PO2 108.4 mmHg (75.0-100.0); AaDO2 51.4 mmHg; COHb 0.4 % (0.5-1.5); O2Hb 94.3 % (94.0-97.0); SITE, ABG Right Radial; VENT MODE, BG 2 L NC
--- NOTE | 2016-08-30 20:40 | NUR ---
TRANSFER AND PUMPHOUSE OPERATOR CHIEF OBTAINED ORDERS FOR BL SOFT WRIST RESTRAINTS; RCD PT FROM ER W/RESTRAINTS IN PLACE. PT NOT FOLLOWING COMMANDS AT THIS TIME. CONTINUE TO MONITOR.
[2016-08-30] MEDS ORDERED: IV NS 0.9% 250 ML IV ONE (20:44)
[2016-08-30] MEDS: IV NS 0.9% 250 ML IV PRN (20:49)
[2016-08-30] MEDS ORDERED: ACYCLOVIR IV 1 GM/20 ML VIAL IV ONE (20:57)
[2016-08-30] MEDS ORDERED: AMPICILLIN 1 GM VIAL ONE (20:58)
[2016-08-30] MEDS ORDERED: MEROPENEM 1 G VIAL IV ONE ×2 (20:58→20:59)
[2016-08-30] MEDS ORDERED: DEXTROSE 50%-WATER 50 ML DISP.SYRIN IV PRN (21:00)
[2016-08-30] MEDS ORDERED: INSULIN REGULAR, HUMAN 100 UNIT/ML 3 ML VIAL SQ PRN (21:00)
[2016-08-30] MEDS ORDERED: IV D5W 250 ML IV ONE (21:05)
[2016-08-30] MEDS ORDERED: IV NS 0.9% 100 ML IV ONE ×2 (21:05→23:01)
[2016-08-30] MEDS: MEROPENEM 1 G in IV NS 0.9% 100 ML IV SCH (21:30)
[2016-08-30] MEDS: ACYCLOVIR IV 1 GM in IV D5W 250 ML IV SCH ×2 (21:37→23:03)
[2016-08-30] MEDS: IV NS 0.9% 1,000 ML IV PRN (23:40)
[2016-08-30] MEDS: AMPICILLIN SODIUM 2 GM in IV NS 0.9% 100 ML IV SCH (23:43)
[2016-08-31] VITALS (44 sets, daily range): BP systolic 101–137; BP diastolic 53–88
[2016-08-31] MEDS ORDERED: LORAZEPAM INJ 2 MG/ML VIAL ONE ×3 (00:38→05:31)
[2016-08-31] MEDS: LORAZEPAM INJ 2 MG/ML VIAL IV PRN ×3 (00:42→23:33)
--- NOTE | 2016-08-31 00:42 | NUR ---
EPIC ANESTHESIA ANALYST PT WITH INCREASED AGITATION; ON BL SOFT WRIST RESTRAINTS ATTEMPTING TO GET OUT BED. YELLING HE WANTS TO GO HOME. UNABLE TO REORIENT PT. RCD ORDER FOR ATIVAN 1 MG IV. CONTINUE TO MONITOR.
[2016-08-31] MEDS: BLOOD SUGAR DIAGNOSTIC 1 EACH STRIP IN SCH ×5 (01:26→23:33)
--- NOTE | 2016-08-31 01:48 | NUR ---
FEDERAL DISTRICT LAW CLERK OBTAINED ORDER FOR 1:1 SITTER PT DESPITE BEING ON BL SOFT WRIST RESTRAINTS ATTEMPTS TO GET OUT OF BED. PULLED OUT IV ACCESS. PER CAGE CASHIER NO SITTER AVAILABLE AT THIS TIME. CONTINUE TO MONITOR.
--- NOTE | 2016-08-31 01:59 | NUR ---
BUSINESS RELATIONSHIP MANAGER PT WITH INCREASED AGITATION; PULLED ANOTHER IV LINE. PT THROWING HALF OF BODY OFF THE BED. SITTING UP AND ATTEMPTING TO REMOVE RESTRAINTS. UNABLE TO REORIENT PT. ADDITIONAL ATIVAN 1 MG IV GIVEN ONE TIME ORDER. CONTINUE TO MONITOR.
[2016-08-31] MEDS ORDERED: LORAZEPAM INJ 2 MG/ML VIAL IV ONE (02:00)
[2016-08-31] MEDS ORDERED: HALOPERIDOL LACTATE INJ 5 MG/ML VIAL ONE (02:29)
[2016-08-31] MEDS ORDERED: diphenhydrAMINE HCL 50 MG/ML VIAL ONE (02:30)
--- NOTE | 2016-08-31 02:30 | NUR ---
POWER LINE INSTALLER AND REPAIRER CALL PLACED TO METAL CUT OFF SAW OPERATOR FOR ADDITIONAL ORDERS PT AGITATION HAS INCREASED; PT HAS KICKED NURSE. MULTIPLE STAFF MEMBERS ATTEMPTING TO HOLD DOWN PT. UNABLE TO REORIENT PT. PT BLEEDING FROM LE ABRASIONS HE CONTINUES TO KICK FEET ON BED. PER METAL CUT OFF SAW OPERATOR D/T AGE UNABLE TO GIVE ANY ADDITIONAL MEDICATIONS AT THIS TIME. CONTINUE TO MONITOR. BL SOFT WRIST RESTRAINTS IN PLACE. CONTINUE TO MONITOR.
[2016-08-31] MEDS ORDERED: DEXTROSE 50%-WATER 50 ML DISP.SYRIN ONE (02:35)
[2016-08-31 02:47] LABS: ABG BASE EXCESS -11.2 mmol/L; ABG OXYGEN SATURATION 96.8 % (92.0-98.5); ABG PCO2 26.4 mmHg (35.0-45.0); ABG PH 7.322 (7.350-7.450); ABG PO2 130.5 mmHg (75.0-100.0); COHb 0.6 % (0.5-1.5); O2Hb 95.3 % (94.0-97.0); SITE, ABG Right Radial; VENT MODE, BG Nasal Cannula
--- NOTE | 2016-08-31 02:50 | NUR ---
CARRIER WASHER SWATHI LUO PT WITH INCREASED AGITATION. AGAIN KICKED NURSING STAFF. PT JUMPING ON BED. KICKING FEET OFF THE BED ON EACH SIDE. MULTIPLE STAFF MEMBERS UNABLE TO HOLD DOWN PT. SWATHI LUO CALLED. ER MD CALLED TO ASSESS PT. DR SINGH AT BEDSIDE WITH ORDERS TO GIVE HALDOL. DIRECTOR OF DIETARY ARRIVED WITH ADDITIONAL ORDERS TO GIVE BENADRYL WELL AD 1/2 AMP D50 FOR BLOOD SUGAR 65. PT CALM AFTER MEDICATIONS ADMINISTERED. BL SOFT WRIST RESTRAINTS REMAIN IN PLACE. CONTINUE TO MONITOR.
[2016-08-31] MEDS ORDERED: HALOPERIDOL LACTATE INJ 5 MG/ML VIAL IM ONE (03:00)
[2016-08-31] MEDS ORDERED: DEXTROSE 50%-WATER 50 ML DISP.SYRIN IVP ONE (03:00)
[2016-08-31] MEDS ORDERED: HALOPERIDOL LACTATE INJ 5 MG/ML VIAL IM PRN (03:00)
[2016-08-31] MEDS ORDERED: diphenhydrAMINE HCL 50 MG/ML VIAL IV ONE (03:00)
[2016-08-31] MEDS ORDERED: AMPICILLIN SODIUM 2 GM VIAL ONE (03:20)
[2016-08-31] MEDS ORDERED: IV NS 0.9% 200 ML IV ONE (03:24)
[2016-08-31] MEDS ORDERED: IV D5W 250 ML IV ONE (03:25)
[2016-08-31] MEDS: MEROPENEM 1 G in IV NS 0.9% 100 ML IV SCH ×2 (04:00→16:00)
--- NOTE | 2016-08-31 04:30 | NUR ---
PIECE MEAT TRIMMER PT WAKING UP; KICKING LEGS AND ATTEMPTING TO GET OUT OF BED. LABS TO BE DRAWN WHEN PT MORE COOPERATIVE. CONTINUE TO MONITOR. BL SOFT WRIST RESTRAINTS REMAIN IN PLACE.
[2016-08-31] MEDS: ACYCLOVIR IV 1 GM in IV D5W 250 ML IV SCH (05:14)
[2016-08-31] MEDS: AMPICILLIN SODIUM 2 GM in IV NS 0.9% 100 ML IV SCH ×4 (05:36→23:25)
--- NOTE | 2016-08-31 06:57 | NUR ---
RIGGER UNABLE TO REPOSITION PT D/T HOSTILE/COMBATIVE BEHAVIOR.
[2016-08-31 07:48] LABS: BASOPHILS % (AUTO) 0.2 % (0.0-2.0); EOSINOPHILS % (AUTO) 0.4 % (0.0-6.0); HEMATOCRIT 30 % (39-51); LYMPHOCYTES # (AUTO) 1.7 /CMM (0.8-4.8); LYMPHOCYTES % (AUTO) 17.2 % (20.0-44.0); MEAN CORPUSCULAR HEMOGLOBIN 31 PG (26.0-33.0); MEAN CORPUSCULAR HGB CONC 33 g/dl (31.0-36.0); MEAN CORPUSCULAR VOLUME 92 fL (80-96); MONOCYTES # (AUTO) 0.8 /CMM (0.1-1.30); MONOCYTES % (AUTO) 8.3 % (2.0-12.0); NEUTROPHILS # (AUTO) 7.1 /CMM (1.8-8.9); NEUTROPHILS % (AUTO) 73.9 % (43.0-81.0); PLATELET COUNT (AUTO) 192 /CMM (150-450); RDW COEFFICIENT OF VARIATION 16.3 (11.5-15.0); RED BLOOD CELL COUNT(AUTO) 3.27 MIL/uL (4.5-6.0); WHITE BLOOD COUNT (AUTO) 9.6 K/uL (4.3-11.0)
--- NOTE | 2016-08-31 08:00 | NUR ---
PAPERHANGER AND PAINTER; ASSESSMENT PT APPEARS TO BE SLEEPING, LETHARGIC BUT AROUSABLE. PT IS ORIENTED TO SELF AND PLACE. PT DENIES ANY PAIN. PT ON FOZIA WRIST RESTRAINS DUE TO PT HAVING EPISODES OF COMBATIVENESS. GOMEZ CATH INTACT DRAINING TO GRAVITY CLEAR YELLOW URINE. NO ACUTE DISTRESS NOTED. PT ON CURRENLTY ON AIRBORNE PRECAUTION DUE TO POSSIBLE MENINGITIS. WILL CLARIFY WITH ID REGARDING NEED FOR AIRBORNE PRECAUTIONS.
[2016-08-31 08:10] LABS: ALBUMIN 3.3 g/dL (3.4-5.0); BILIRUBIN,TOTAL 0.6 mg/dL (0.2-1.0); CALCIUM, SERUM 7.7 mg/dL (8.5-10.1); CREATININE 1.3 mg/dL (0.6-1.3); POTASSIUM 3.8 mmol/L (3.5-5.1); TOTAL PROTEIN, SERUM 6.4 g/dL (6.4-8.2)
[2016-08-31 08:15] LABS: TROPONIN I 0.199 ng/mL (0.00-0.056)
[2016-08-31 08:25] LABS: CREATINE KINASE MB 15.2 ng/mL (0-3.6)
[2016-08-31 08:30] LABS: INR 1.06 (0.87-1.13); PROTHROMBIN TIME 11.4 SECS (9.5-12.7)
[2016-08-31] MEDS ORDERED: FEE PK DOSING 1 MIN EA MC ONE (08:56)
[2016-08-31] MEDS: PANTOPRAZOLE 40 MG VIAL IV SCH (09:16)
[2016-08-31] MEDS: FLUCONAZOLE IN NS 200 MG in PREMIX 1 EA IV SCH ×2 (09:16)
[2016-08-31] MEDS: VANCOMYCIN 1 GM in IV D5W 250 ML IV SCH ×2 (10:59→21:04)
--- NOTE | 2016-08-31 12:30 | NUR ---
FEED GRINDER; RESTRAINS PT APPEARS TO BE SLEEPING, AROUSABLE. PT ABLE TO STATE NAME AND PLACE, WHEN ASKED HOW HE IS DOING PT KISHORE TO STATE " IM GREAT". PT DENIES ANY PAIN. FOZIA WRIST RESTRAINS REMOVED. BED SET TO LOW, BED ALARM ON.
--- NOTE | 2016-08-31 12:34 | NUR ---
PIC ORDERED FOR MULTIPLE ANTIBIOTICS, HIGH RISK FOR HEMODYNAMIC AND RESPIR INSTABILITY. NO FAMILY OR DPOA TO CONSENT. CARLOS MOE AND HONORIO INDICATE THAT EACH WILL MAKE A NOTE REGARDING PIC INDICATION
--- NOTE | 2016-08-31 13:00 | NUR ---
SEWING SUPERVISOR; PULMONARY DR. Jake HULL AT BEDSIDE UPDATE WAS GIVEN. DISCUSSED IF PT NEEDS ABG, DUE TO PTS LETHARGIC. NO ORDERS GIVEN.
[2016-08-31] MEDS ORDERED: LAMIVUDINE (150MG) 150 MG TABLET PO SCH (14:30)
--- NOTE | 2016-08-31 15:57 | NUR ---
SALES OPERATIONS ASSOCIATE; MEDICATIONS CALLED GABI PUTNAM PTS PERSON TO NOTIFY ON PTS FACESHEET, AT [phone]. TRYING TO OBTAIN INFORMATION REGARDING PTS MEDICATION. MESSAGE LEFT ON ANSWERING MACHINE THAT WE ARE TRYING TO GET A HOLD OF NEXT OF KIN.
[2016-08-31] MEDS ORDERED: ABACAVIR SULFATE 300 MG TABLET PO SCH (17:00)
[2016-08-31] MEDS: ACYCLOVIR IV 0.8 GM in IV D5W 250 ML IV SCH (18:35)
--- NOTE | 2016-08-31 19:30 | NUR ---
RN INITIAL NOTES RECEIVED PT SLEEPING ON BED, A/O X1, CALM AND DROWSY BUT EASILY AROUSABLE. ON 2L NASAL CANNULA, SATURATING WELL, NO S/S OF RESP DISTRESS. CURRENTLY SR ON THE MONITOR, HR 70-80'S. GOMEZ CATH INTACT. RIGHT EJ AND RIGHT UPPER ARM PICC FLUSHED AND PATENT, NO S/S OF INFILTRATION/INFECTION, DRESSINGS CDI. BED LOW AND LOCKED, SIDERAILS UP, BED ALARM ON. WILL MONITOR
[2016-08-31] MEDS: IV NS 0.9% 1,000 ML IV PRN (21:04)
[2016-08-31] MEDS: IV NS 0.9% 250 ML IV PRN (21:05)
[2016-08-31] MEDS ORDERED: SECONDARY IV SET 1 EA INFUS.SET MC ONE (23:29)
[2016-09-01] VITALS (21 sets, daily range): BP systolic 125–175; BP diastolic 47–106
[2016-09-01] MEDS: MEROPENEM 1 G in IV NS 0.9% 100 ML IV SCH ×2 (04:17→16:24)
[2016-09-01 04:53] LABS: BASOPHILS % (AUTO) 0.3 % (0.0-2.0); EOSINOPHILS # (AUTO) 0.2 /CMM (0.0-0.7); EOSINOPHILS % (AUTO) 2.6 % (0.0-6.0); HEMATOCRIT 32 % (39-51); HEMOGLOBIN 10.6 g/dL (13.5-17.5); LYMPHOCYTES # (AUTO) 1.5 /CMM (0.8-4.8); LYMPHOCYTES % (AUTO) 20.1 % (20.0-44.0); MEAN CORPUSCULAR HEMOGLOBIN 31 PG (26.0-33.0); MEAN CORPUSCULAR HGB CONC 33 g/dl (31.0-36.0); MEAN CORPUSCULAR VOLUME 92 fL (80-96); MONOCYTES # (AUTO) 0.6 /CMM (0.1-1.30); MONOCYTES % (AUTO) 8.2 % (2.0-12.0); NEUTROPHILS % (AUTO) 68.8 % (43.0-81.0); PLATELET COUNT (AUTO) 199 /CMM (150-450); RDW COEFFICIENT OF VARIATION 17.2 (11.5-15.0); RED BLOOD CELL COUNT(AUTO) 3.49 MIL/uL (4.5-6.0); WHITE BLOOD COUNT (AUTO) 7.2 K/uL (4.3-11.0)
[2016-09-01] MEDS: AMPICILLIN SODIUM 2 GM in IV NS 0.9% 100 ML IV SCH ×3 (05:04→17:06)
[2016-09-01] MEDS: ACYCLOVIR IV 0.8 GM in IV D5W 250 ML IV SCH ×2 (05:04→17:06)
[2016-09-01 05:09] LABS: CALCIUM, SERUM 7.8 mg/dL (8.5-10.1); MAGNESIUM 2.2 mg/dL (1.8-2.4); PHOSPHORUS 1.9 mg/dL (2.5-4.9)
[2016-09-01 05:14] LABS: POTASSIUM 3.6 mmol/L (3.5-5.1)
[2016-09-01] MEDS: BLOOD SUGAR DIAGNOSTIC 1 EACH STRIP IN SCH ×3 (05:17→17:23)
--- NOTE | 2016-09-01 06:15 | NUR ---
RN CLOSING NOTES PT REMAINS STABLE OF THE MOMENT. ALL DUE MEDS GIVEN, AM CARE PROVIDED. WILL ENDORSE CONTINUITY OF CARE TO AM RN
[2016-09-01] MEDS: PANTOPRAZOLE 40 MG VIAL IV SCH (08:14)
[2016-09-01 09:18] LABS: *BASOS 0 % (.); *EOS 0 % (.); *HCT 31.5 % (37.5-51.0); *HGB 10.1 g/dL (12.6-17.7); *IMMATURE GRANULOCYTES 0 % (.); *LYMPHOCYTES 10 % (.); *MCH 30.2 pg (26.6-33.0); *MCHC 32.1 g/dL (31.5-35.7); *MCV 94 fL (79-97); *MONOCYTES 11 % (.); *MONOS, ABSOLUTE 1.1 x10E3/uL (0.1-0.9); *NEUTROPHILS 79 % (.); *PLT 222 x10E3/uL (150-379); *RBC 3.34 x10E6/uL (4.14-5.80); *RDW 15.8 % (12.3-15.4)
--- NOTE | 2016-09-01 09:22 | NUR ---
WOUND CARE CONSULT: NO WOUND CONSULT NEEDED PER RN WHO STATES PT ONLY HAS FEW DRY SCRATCHES ON LEGS. PT WAS PREVIOUSLY COMBATIVE. CHARLY SCORE CURRENTLY 14. WILL SEE PRN.
[2016-09-01] MEDS: VANCOMYCIN 1 GM in IV D5W 250 ML IV SCH ×2 (09:37→21:33)
[2016-09-01] MEDS: FLUCONAZOLE IN NS 200 MG in PREMIX 1 EA IV SCH ×2 (09:37)
--- NOTE | 2016-09-01 10:54 | NUR ---
SLOT KEY PERSON NOTE 0720: Received patient lethargic, easily aroused but goes back to sleeping and feeling drowsy. Patient A/Ox2. Tolerated room air, no respiratory distress noted at this time. SR 90's on the monitor. With Atkinson cath intact, noted with pinkish urine drained to BSD, will continue to monitor. RJ PICC intact, IVF infusing well. On multiple ATB therapy for possible meningitis. Isolation precaution maintained and observed. 0945: Spoke with Francis and F/U with the [facility], said he is not sure if able to provide because he does not know when he can have his uncle's ortega for his apartment, made pharmacy aware. 1000: S/E by Dr. Hughes, continue ICU for now. 1100: S/E by Dr. Hutchison and Dr. Tilley, no new order at this time.
[2016-09-01] MEDS ORDERED: Sodium Phosphate 15 MMOL in IV D5W 250 ML IV ONE (11:30)
[2016-09-01] MEDS ORDERED: IV SET PRIMARY PUMP SET 1 EA INFUS.SET MC ONE (11:39)
[2016-09-01] MEDS ORDERED: SECONDARY IV SET 1 EA INFUS.SET MC ONE (12:25)
[2016-09-01] MEDS: IV NS 0.9% 1,000 ML IV PRN (12:43)
--- NOTE | 2016-09-01 15:04 | NUR ---
[employer] MAINFRAME SYSTEMS PROGRAMMER NOTE Noted patient with SBP 160-170's informed Dr. Hughes to follow up for the med rec.
[2016-09-01] MEDS: ABACAVIR SULFATE 300 MG TABLET PO SCH (15:09)
[2016-09-01] MEDS: LAMIVUDINE (150MG) 150 MG TABLET PO SCH (15:09)
[2016-09-01] MEDS: TIVICAY 50 MG PO SCH (15:09)
[2016-09-01] MEDS: CARVEDILOL 12.5 MG TABLET PO SCH ×2 (18:35→21:46)
--- NOTE | 2016-09-01 18:39 | NUR ---
RHIC SYSTEMS SAFETY ENGINEER NOTE 1800: Followed up again with Dr. Hughes re: high BP, obtained order for Coreg 25 BID to start now. Given as ordered. 1835: Patient more awake now, made MD aware, with order to start on Cardiac diet.
--- NOTE | 2016-09-01 19:00 | NUR ---
RN INITIAL NOTES RECEIVED PT AWAKE ON BED, A/O X3. ON ROOM AIR, SATURATING WELL, NO S/S OF RESP DISTRESS. CURRENTLY SR ON THE MONITOR, HR 80-90'S. GOMEZ CATH INTACT. RIGHT EJ AND RIGHT UPPER ARM PICC FLUSHED AND PATENT, NO S/S OF INFILTRATION/INFECTION, DRESSINGS CDI. BED LOW AND LOCKED, SIDERAILS UP, BED ALARM ON. WILL MONITOR
--- NOTE | 2016-09-01 19:20 | NUR ---
RN INITIAL NOTE RECEIVED PT IN NO ACUTE DISTRESS IN BED. PT IS A/O X 2 WITH PERIODS OF DISORIENTATION. PT IS ON O2 VIA NC @ 4LPM AND TOLERATING WELL WITH O2 SAT @ 98%. PT HAS RJ PICC LINE THAT IS CLEAN DRY AND INTACT. PT HAS RIGHT EJ THAT IS CLEAN DRY AND INTACT. PT HAS FOZIA WRIST RESTRAINTS AND PT IS FREQUENTLY OBSERVED. BED IN LOW LOCK POSITION WITH RIALS UP X 2. CALL LIGHT WITHIN REACH AND ALL SAFETY MEASURES ENSURED AND CARRIED OUT. WILL CONTINUE TO MONITOR PT. Addendum: 09/02/16 at 0721 by SHERLYN JACINTO RN WROTE REPORT FOR WRONG PT. PLEASE DISCARD.
--- NOTE | 2016-09-01 19:50 | NUR ---
RN NOTES GAVE REPORT TO LAWANDA MARLINE PLATA FOR THE PATIENT'S CONTINUITY OF CARE
--- NOTE | 2016-09-01 19:50 | NUR ---
RN NOTE RECEIVED REPORT FROM MANOJ ANIMAL [facility] PROVIDER FOR CONTINUITY OF CARE. AWAITING ARRIVAL OF PT.
--- NOTE | 2016-09-01 22:00 | NUR ---
RN INITIAL NOTE RECEIVED PT IN NO ACUTE DISTRESS IN BED. PT IS A/O X 3 AND ABLE TO MAKE NEEDS KNOWN. PT IS ON RA AND TOLERATING WELL. PT HAS RJ PICC LINE THAT IS CLEAN DRY AND INTACT. PT NOT C/O ANY SOB, DIFFICULTY BREATHING OR PAIN AT THIS TIME. BED IN LOW LOCK POSITION WITH RIALS UP X 2. CALL LIGHT WITHIN REACH AND ALL SAFETY MEASURES ENSURED AND CARRIED OUT. WILL CONTINUE TO MONITOR PT.
[2016-09-02] VITALS: BP 138/86
[2016-09-02] MEDS: AMPICILLIN SODIUM 2 GM in IV NS 0.9% 100 ML IV SCH ×3 (00:53→12:40)
[2016-09-02] MEDS: BLOOD SUGAR DIAGNOSTIC 1 EACH STRIP IN SCH ×5 (00:53→22:53)
[2016-09-02 01:12] LABS: *% CD 4 POS. LYMPH 33.3 % (30.8-58.5); *% CD 8 POS. LYMPH 46.5 % (12.0-35.5); *ABSOLUTE CD 4 HELPER 333 /uL (359-1519); *ABSOLUTE CD 8 SUPPRESSOR 465 /uL (109-897); *CD4/CD8 RATIO 0.72 (0.92-3.72)
[2016-09-02 04:00] VITALS: BP 158/93
[2016-09-02] MEDS: MEROPENEM 1 G in IV NS 0.9% 100 ML IV SCH (04:20)
[2016-09-02] MEDS: ACYCLOVIR IV 0.8 GM in IV D5W 250 ML IV SCH (06:42)
--- NOTE | 2016-09-02 07:15 | NUR ---
RN CLOSING NOTE PT REMAINS IN NO ACUTE DISTRESS IN BED. PT DID NOT HAVE ANY SIGNIFICANT CHANGE IN CONDITION DURING SHIFT. ALL NEEDS MET. ALL ORDERS CARRIED OUT. WILL ENDORSE TO AM RN FOR CONTINUITY OF CARE.
[2016-09-02 08:00] VITALS: BP 154/97
[2016-09-02 08:14] LABS: CALCIUM, SERUM 8.2 mg/dL (8.5-10.1); CREATININE 0.8 mg/dL (0.6-1.3); POTASSIUM 3.6 mmol/L (3.5-5.1)
[2016-09-02] MEDS: PANTOPRAZOLE 40 MG VIAL IV SCH (10:35)
[2016-09-02] MEDS: FLUCONAZOLE IN NS 200 MG in PREMIX 1 EA IV SCH ×2 (10:35)
[2016-09-02] MEDS: VANCOMYCIN 1 GM in IV D5W 250 ML IV SCH (11:22)
[2016-09-02] MEDS: TIVICAY 50 MG PO SCH (11:22)
[2016-09-02] MEDS: ABACAVIR SULFATE 300 MG TABLET PO SCH (11:23)
[2016-09-02] MEDS: LAMIVUDINE (150MG) 150 MG TABLET PO SCH (11:23)
[2016-09-02] MEDS: CARVEDILOL 12.5 MG TABLET PO SCH ×2 (11:24→22:52)
[2016-09-02 12:00] VITALS: BP 167/99
[2016-09-02] MEDS ORDERED: DEXTROSE 50%-WATER 50 ML DISP.SYRIN IV PRN (12:00)
[2016-09-02] MEDS ORDERED: MEROPENEM 1 G in IV NS 0.9% 100 ML IV SCH (13:00)
[2016-09-02] MEDS: ACYCLOVIR IV 0.75 GM in IV D5W 250 ML IV SCH ×2 (13:50→22:53)
[2016-09-02] MEDS: CEFTRIAXONE 2 G in IV D5W 100 ML IV SCH (14:37)
[2016-09-02 16:00] VITALS: BP 136/82
[2016-09-02] MEDS ORDERED: Medication Not On Formulary EA (Omega-3 Fatty Acids (Fish Oil) 1,000 MG) PO SCH (17:00)
[2016-09-02] MEDS ORDERED: CARVEDILOL 3.125 MG TABLET PO SCH (17:00)
[2016-09-02] MEDS: TOPIRAMATE 100 MG TABLET PO SCH (17:43)
[2016-09-02] MEDS: OXYBUTYNIN CHLORIDE 5 MG TABLET PO SCH (17:43)
[2016-09-02] MEDS: IV NS 0.9% 1,000 ML IV PRN (18:33)
--- NOTE | 2016-09-02 18:34 | NUR ---
RN NOTE ADMINISTERED IV FLUIDS MANUALLY, SCANNER NOT AVAILABLE
--- NOTE | 2016-09-02 19:30 | NUR ---
RN INITIAL NOTES RECEIVED PATIENT FROM [facility] NURSE SCHROEDER. PATIENT AWAKE ON BED, A/O X3. ON ROOM AIR, SATURATING WELL, NO S/S OF RESP DISTRESS. CURRENTLY SR WITH BBB ON THE HITTING COACH, HR 80-90'S. GOMEZ CATH INTACT. RIGHT EJ AND RIGHT UPPER ARM PICC FLUSHED AND PATENT, NO S/S OF INFILTRATION/INFECTION, DRESSINGS CDI. BED LOW AND LOCKED, SIDERAILS UP, BED ALARM ON. WILL MONITOR CLOSELY, ISOLATION PRECAUTIONS OBSERVED
[2016-09-02 20:00] VITALS: BP 124/82
[2016-09-02] MEDS: GABAPENTIN 300 MG CAPSULE PO SCH (22:50)
[2016-09-02] MEDS: ENOXAPARIN SODIUM 40 MG/0.4 ML DISP.SYRIN SQ SCH (23:11)
[2016-09-03] VITALS: BP 136/85
[2016-09-03] MEDS: VANCOMYCIN 1 GM in IV D5W 250 ML IV SCH ×2 (00:16→10:58)
[2016-09-03 04:00] VITALS: BP 125/73
[2016-09-03 06:51] LABS: BASOPHILS % (AUTO) 0.4 % (0.0-2.0); EOSINOPHILS # (AUTO) 0.4 /CMM (0.0-0.7); EOSINOPHILS % (AUTO) 5.2 % (0.0-6.0); HEMATOCRIT 32 % (39-51); HEMOGLOBIN 10.7 g/dL (13.5-17.5); LYMPHOCYTES # (AUTO) 1.7 /CMM (0.8-4.8); LYMPHOCYTES % (AUTO) 24.1 % (20.0-44.0); MEAN CORPUSCULAR HEMOGLOBIN 31 PG (26.0-33.0); MEAN CORPUSCULAR HGB CONC 34 g/dl (31.0-36.0); MEAN CORPUSCULAR VOLUME 92 fL (80-96); MONOCYTES # (AUTO) 0.9 /CMM (0.1-1.30); MONOCYTES % (AUTO) 12.1 % (2.0-12.0); NEUTROPHILS # (AUTO) 4.2 /CMM (1.8-8.9); NEUTROPHILS % (AUTO) 58.2 % (43.0-81.0); PLATELET COUNT (AUTO) 187 /CMM (150-450); RED BLOOD CELL COUNT(AUTO) 3.48 MIL/uL (4.5-6.0); WHITE BLOOD COUNT (AUTO) 7.3 K/uL (4.3-11.0)
--- NOTE | 2016-09-03 07:00 | NUR ---
RN CLOSING NOTES PATIENT SLEEPING IN BED, NO ACUTE EVENT OCCURRED THROUGHOUT SHIFT. ISOLATION PRECAUTIONS OBSERVED. PATIENT ENDORSED TO THE AM SHIFT NURSE FOR GERARDO
[2016-09-03] MEDS: BLOOD SUGAR DIAGNOSTIC 1 EACH STRIP IN SCH ×4 (07:04→21:49)
[2016-09-03] MEDS: ACYCLOVIR IV 0.75 GM in IV D5W 250 ML IV SCH ×3 (07:04→21:35)
[2016-09-03 07:18] LABS: CALCIUM, SERUM 8.4 mg/dL (8.5-10.1); CREATININE 0.9 mg/dL (0.6-1.3); MAGNESIUM 1.9 mg/dL (1.8-2.4); PHOSPHORUS 2.6 mg/dL (2.5-4.9); POTASSIUM 3.4 mmol/L (3.5-5.1)
[2016-09-03] MEDS ORDERED: PANTOPRAZOLE 40 MG TABLET.DR PO SCH (07:30)
--- NOTE | 2016-09-03 07:42 | NUR ---
RN INITIAL NOTES PATIENT ASLEEP IN BED, A/O X3. ON ROOM AIR, SATURATING WELL, NO S/S OF RESP DISTRESS. CURRENTLY SR ON THE MANAGEMENT TRAINEE PROGRAM STORES, HR 90'S. GOMEZ CATH INTACT. RIGHT EJ AND RIGHT UPPER ARM PICC FLUSHED AND PATENT, NO S/S OF INFILTRATION/INFECTION, DRESSINGS CLEAN DRY AND INTACT. BED LOW AND LOCKED, SIDERAILS UP, BED ALARM ON. WILL MONITOR CLOSELY, ISOLATION PRECAUTIONS OBSERVED
[2016-09-03 08:00] VITALS: BP 137/72
[2016-09-03 08:09] LABS: *WEST NILE VIRUS IgG, CSF Positive (Negative)
[2016-09-03] MEDS: PANTOPRAZOLE 40 MG VIAL IV SCH (09:30)
[2016-09-03] MEDS: TOPIRAMATE 100 MG TABLET PO SCH ×2 (09:31→18:49)
[2016-09-03] MEDS: CITALOPRAM HYDROBROMIDE 20 MG TABLET PO SCH (09:31)
[2016-09-03] MEDS: ATORVASTATIN 40 MG TABLET PO SCH (09:31)
[2016-09-03] MEDS: OXYBUTYNIN CHLORIDE 5 MG TABLET PO SCH ×2 (09:32→18:49)
[2016-09-03] MEDS: CHOLECALCIFEROL 1,000 UNIT TABLET (VIT D3) PO SCH (09:32)
[2016-09-03] MEDS: METFORMIN 500 MG TABLET PO SCH (09:32)
[2016-09-03] MEDS: BENAZEPRIL HCL 20 MG TABLET PO SCH (09:32)
[2016-09-03] MEDS: CARVEDILOL 12.5 MG TABLET PO SCH ×2 (09:33→21:34)
[2016-09-03] MEDS: buPROPion SR 150 MG TABLET.ER PO SCH (09:33)
[2016-09-03] MEDS: FLUCONAZOLE IN NS 200 MG in PREMIX 1 EA IV SCH ×2 (09:33)
[2016-09-03] MEDS: ASPIRIN EC 81 MG TABLET.DR PO SCH (09:33)
--- NOTE | 2016-09-03 09:55 | NUR ---
RN NOTE SOME OF THE PATIENT AM MEDICATION ARE NOT AVAILABLE AT THIS TIME PHARMACY CONTACTED THEY WILL DISPENSE MEDICATION CHYNA. RN ILL ADMINISTER SOON THEY ARE AVAILABLE
[2016-09-03 10:21] LABS: *CRYPTOCOCCUS AG, CSF Negative (Negative); *WEST NILE VIRUS IgM, CSF Negative (Negative)
[2016-09-03] MEDS: VIT B CMPLX 3/FA/VIT C/BIOTIN 1 TAB TABLET PO SCH (10:57)
[2016-09-03] MEDS: TIVICAY 50 MG PO SCH (10:58)
[2016-09-03] MEDS: LAMIVUDINE (150MG) 150 MG TABLET PO SCH (10:58)
[2016-09-03] MEDS: ABACAVIR SULFATE 300 MG TABLET PO SCH (10:58)
[2016-09-03 11:11] LABS: VDRL, CSF Non Reactive (Non Rea:<1:1)
--- NOTE | 2016-09-03 11:51 | NUR ---
RN NOTE PATIENT REFUSED INSULIN COVERAGE STATES HE DOESN'T TAKE INSULIN AT HOME . CBG ELEVATED DUE TO SUGAR INTAKE THIS AM WITH HIS BREAKFAST. RN WILL CONTINUE TO FOLLOW
--- NOTE | 2016-09-03 11:52 | NUR ---
RN NOTE LATE ADMINISTRATION OF MEDICATION DUE TO OTHER FLUIDS/ ANTIBIOTICS RUNNING AT THE TIME. RN WILL ADMINISTER WHEN AVAILABLE
[2016-09-03 12:00] VITALS: BP 145/86
[2016-09-03] MEDS: POTASSIUM CL. PREMIX PERIPHER. 50 ML IV SCH ×2 (13:14→15:00)
--- NOTE | 2016-09-03 14:18 | NUR ---
RN NOTE PATIENT WALKED WITH PHYSICAL THERAPY WITHOUT ISSUES. PT STATES PATIENT OK TO DISCHARGE. RN WILL CONTINUE TO FOLLOW
[2016-09-03] MEDS ORDERED: hydrALAZINE HCL 10 MG TABLET PO PRN (15:00)
[2016-09-03 16:00] VITALS: BP 126/81
--- NOTE | 2016-09-03 19:52 | NUR ---
RN CLOSING NOTES PATIENT IN CHAIR, UPSET PULLED IV LINE OFF DUE TO NEEDING TO GO TO THE BATHROOM STATES TAT HE HAS NEEDED TO GO TO THE REST ROOM FOR 15MINS AND HAD DIFFICULTY CONTACTING STAFF. AM AND PM NURSE ASSESSED PATIENTS PIC LINE STILL STABLE AND IN PLACE. PATIENT STILL HAS ANTIBIOTICS DUE FRO 3PM NEEDING TO BE ADMINISTERED ENDORSED TO NEXT SHIFT . CHARGE NURSE AMBAR NOTIFIED ABOUT THE DELAY IN MEDICATION ADMINISTRATION . PT HAS EJ IV ACCESS BUT STATES HE WANTS IT REMOVED SOON POSSIBLE DUE TO IT CONSTANTLY ALARMING PM NURSE STATES SHE WILL REMOVE TONIGHT WHEN TIME ALLOWS. SHE ALSO STATES SHE WILL ADMINISTERED 3PM ANTIBIOTICS AND REQUESTED BY AM RN, NO ACUTE EVENT OCCURRED THROUGHOUT SHIFT. ISOLATION PRECAUTIONS OBSERVED. PATIENT ENDORSED TO THE PM SHIFT NURSE FOR GERARDO
[2016-09-03 20:00] VITALS: BP 148/89
--- NOTE | 2016-09-03 20:00 | NUR ---
WORKDAY DIRECTOR NOTES PT ALERT AND ORIENTED. VERBALLY RESPONSIVE TO STIMULI. DENIES ANY PAIN AT THIS TIME. ON ROOM AIR. NO ACUTE RESP. DISTRESS NOTED. RIGHT UPPER ARM PICC LINE NOTED, INTACT AND PATENT. DRESSING C/D/I. RIJ SALINE LOCK NOTED. WILL REMOVED PER PT REQUEST. IV FLUID INFUSING WELL AT 75CC/HR. NO S/S OF FLUID OVERLOAD. ON GOMEZ CATHETER, DWELLING WELL. AMBULATES WITH WALKER. SAFETY PRECAUTION MAINTAINED. REMINDED PT TO USE CALL FOR ANY ASSISTANCE. CONTACT AND RESP. ISOLATION PRECAUTION OBSERVED. WILL CONTINUE TO MONITOR.
[2016-09-03] MEDS: GABAPENTIN 300 MG CAPSULE PO SCH (21:35)
[2016-09-03] MEDS: ENOXAPARIN SODIUM 40 MG/0.4 ML DISP.SYRIN SQ SCH (21:48)
[2016-09-03] MEDS: CEFTRIAXONE 2 G in IV D5W 100 ML IV SCH (21:49)
[2016-09-03] MEDS: INSULIN REGULAR, HUMAN 100 UNIT/ML 3 ML VIAL SQ PRN (21:50)
[2016-09-03] MEDS: LORAZEPAM INJ 2 MG/ML VIAL IV PRN (22:28)
[2016-09-04] VITALS: BP 132/76
[2016-09-04] MEDS: IV NS 0.9% 1,000 ML IV PRN (02:43)
[2016-09-04 04:00] VITALS: BP 135/87
[2016-09-04] MEDS: ACYCLOVIR IV 0.75 GM in IV D5W 250 ML IV SCH (06:41)
[2016-09-04] MEDS: BLOOD SUGAR DIAGNOSTIC 1 EACH STRIP IN SCH ×2 (06:43→12:30)
[2016-09-04] MEDS: INSULIN REGULAR, HUMAN 100 UNIT/ML 3 ML VIAL SQ PRN (06:46)
--- NOTE | 2016-09-04 07:27 | NUR ---
RN NOTES PT REMAINS STABLE THROUGHOUT THE SHIFT. ENDORSED TO THE AM NURSE.
[2016-09-04 07:53] LABS: CREATININE 0.9 mg/dL (0.6-1.3); POTASSIUM 3.2 mmol/L (3.5-5.1)
[2016-09-04 08:00] VITALS: BP 146/88
--- NOTE | 2016-09-04 08:00 | NUR ---
RN INITIAL NOTES PATIENT ASLEEP IN BED, A/O X3. ON ROOM AIR, SATURATING WELL, NO S/S OF RESP DISTRESS. CURRENTLY SR ON THE DOCTOR OF CHIROPRACTIC, HR 90'S. GOMEZ CATH INTACT. RIGHT UPPER ARM PICC FLUSHED AND PATENT, NO S/S OF INFILTRATION/INFECTION, DRESSINGS CLEAN DRY AND INTACT. BED LOW AND LOCKED, SIDERAILS UP, BED ALARM ON. WILL MONITOR CLOSELY, ISOLATION PRECAUTIONS OBSERVED
[2016-09-04] MEDS: TIVICAY 50 MG PO SCH (08:10)
[2016-09-04] MEDS: LAMIVUDINE (150MG) 150 MG TABLET PO SCH (08:10)
[2016-09-04] MEDS: OXYBUTYNIN CHLORIDE 5 MG TABLET PO SCH (08:11)
[2016-09-04] MEDS: METFORMIN 500 MG TABLET PO SCH (08:11)
[2016-09-04] MEDS: ABACAVIR SULFATE 300 MG TABLET PO SCH (08:11)
[2016-09-04] MEDS: CHOLECALCIFEROL 1,000 UNIT TABLET (VIT D3) PO SCH (08:11)
[2016-09-04] MEDS: ASPIRIN EC 81 MG TABLET.DR PO SCH (08:11)
[2016-09-04] MEDS: VIT B CMPLX 3/FA/VIT C/BIOTIN 1 TAB TABLET PO SCH (08:11)
[2016-09-04] MEDS: buPROPion SR 150 MG TABLET.ER PO SCH (08:11)
[2016-09-04] MEDS: ATORVASTATIN 40 MG TABLET PO SCH (08:11)
[2016-09-04] MEDS: CARVEDILOL 12.5 MG TABLET PO SCH (08:12)
[2016-09-04] MEDS: BENAZEPRIL HCL 20 MG TABLET PO SCH (08:12)
[2016-09-04] MEDS: CITALOPRAM HYDROBROMIDE 20 MG TABLET PO SCH (08:12)
[2016-09-04] MEDS: FLUCONAZOLE IN NS 200 MG in PREMIX 1 EA IV SCH ×2 (08:13)
[2016-09-04] MEDS: PANTOPRAZOLE 40 MG VIAL IV SCH (08:13)
[2016-09-04] MEDS: TOPIRAMATE 100 MG TABLET PO SCH (08:13)
--- NOTE | 2016-09-04 10:00 | NUR ---
RN NOTE PATIENT REQUESTING TO LEAVE AMA STATES HE IS READY TO GO HOME . MD JONNIE MARCUS PAGED TO NOTIFY RN WILL WAIT FOR RETURN PHONE CALL
--- NOTE | 2016-09-04 11:00 | NUR ---
RN NOTE PATIENT STATES HE IS LEAVING AMA AND CONTACTED CAREGIVER TO COME PICK HIM UP. RN WILL CALL MD JONNIE MARCUS TO NOTIFY HIM OF PATIENTS WISHES
[2016-09-04 12:00] VITALS: BP 138/78
[2016-09-04] MEDS ORDERED: POTASSIUM CHLORIDE 20 MEQ TAB.PRT.SR PO SCH (12:00)
--- NOTE | 2016-09-04 12:30 | NUR ---
RN NOTE PATIENT GOMEZ CATH REMOVED PENDING AMA STATUS
--- NOTE | 2016-09-04 12:45 | NUR ---
RN NOTE RN SPOKE WITH DR. JONNIE MARCUS IN REGARDS TO THE PATIENT REQUESTING TO LEAVE AMA. STATES THAT THAT IS OKAY FOR THE PATIENT TO GO AMA AND SIGN HIM SELF OUT . AMA PAPER PRINTED AND SIGN BY THE PATIENT . RN EXPLAINED RISK FACTOR WITH THE PATIENT PATIENT ACKNOWLEDGED UNDERSTANDING . CHARGE NURSE SOON NOTIFIED AND ACKNOWLEDGED .
--- NOTE | 2016-09-04 13:15 | NUR ---
RN NOTE - PT AMA PATIENT STABLE AT THIS TIME , RJ PICC LINE REMOVED DUE TO AMA STATUS PATIENT TOLERATED WELL. RN WAITED WITH THE PATIENT UNTIL RIDE /CAREGIVER ARRIVED , RN INFORMED THE CAREGIVER OF AMA STATUS AND NOTIFIED THEM TO RETURN IF ANY CHANGES IN CONDITION . CAREGIVER ACKNOWLEDGED UNDERSTANDING . CHARGE NURSE SOON PROVIDED DISCHARGE FOLDER FOR THE PATIENT MARLINE JC PRESENTED THIS FOLDER TO THE PATIENT UPON DISCHARGE . PATIENT HAS LEFT HOSPITAL WITHOUT EVENT.
== END 2016-09-04 13:23 | disposition left against medical advice (07) | DRG 974 ==
LOC: ER 16:23 → ICU 19:43 → TELE-TD 09-01 20:37 → TELE1 09-02 08:54
PROVIDERS: ADMIT Internal Medicine; ATTEND Internal Medicine
PROC: 009U3ZX Drainage of Spinal Canal, Percutaneous Approach, Diagnostic (ICD-10-PCS; principal; 2016-08-30)
PROC: 02HV33Z Insertion of Infusion Device into Superior Vena Cava, Percutaneous Approach (ICD-10-PCS; 2016-08-31)
PROC: B548ZZA Ultrasonography of Superior Vena Cava, Guidance (ICD-10-PCS; 2016-08-31)
DX: A41.9 Sepsis, unspecified organism (principal); B20 Human immunodeficiency virus [HIV] disease; I21.4 Non-ST elevation (NSTEMI) myocardial infarction; G93.41 Metabolic encephalopathy; A92.30 West Nile virus infection, unspecified; G04.90 Encephalitis and encephalomyelitis, unspecified; E87.2 Acidosis; E44.0 Moderate protein-calorie malnutrition; N17.9 Acute kidney failure, unspecified; I50.30 Unspecified diastolic (congestive) heart failure; A87.8 Other viral meningitis; D63.8 Anemia in other chronic diseases classified elsewhere; E78.5 Hyperlipidemia, unspecified; F03.90 Unspecified dementia, unspecified severity, without behavioral disturbance, psychotic disturbance, mood disturbance, and anxiety; J44.9 Chronic obstructive pulmonary disease, unspecified; Z85.46 Personal history of malignant neoplasm of prostate; Z79.899 Other long term (current) drug therapy; Z86.73 Personal history of transient ischemic attack (TIA), and cerebral infarction without residual deficits; Z87.891 Personal history of nicotine dependence; Z86.010 Personal history of colon polyps; F19.90 Other psychoactive substance use, unspecified, uncomplicated; I11.0 Hypertensive heart disease with heart failure; E11.649 Type 2 diabetes mellitus with hypoglycemia without coma; M85.80 Other specified disorders of bone density and structure, unspecified site; N40.0 Benign prostatic hyperplasia without lower urinary tract symptoms; Z79.84 Long term (current) use of oral hypoglycemic drugs; K58.9 Irritable bowel syndrome, unspecified; R65.20 Severe sepsis without septic shock
CPT/HCPCS: 36415; 36600; 70450-TC; 71010-TC; 80048-TC; 80053-TC; 80076-TC; 80202-TC; 80305; 81000-TC; 82550-TC; 82553-TC; 82803-TC; 82962-TC; 83540-TC; 83605-TC; 83735-TC; 84100-TC; 84484-TC; 85025-TC; 85385-TC; 85610-TC; 85730-TC; 86360; 86592; 86635; 86694; 86788; 86789; 87040-TC; 87070-TC; 87081-TC; 87086-TC; 87899; 89051-TC; 93307-TC; 97001-TC; 97116-TC; 97530-TC; A4216; A4606; A9563; C9113; J0133; J0290; J0696; J1200; J1450; J1630; J1650; J1815; J2060; J2185; J3370; J3480; J7030; J7040; J7050; J7060; Z7610

== ENCOUNTER 2016-10-20 13:59 | Inpatient (IN) | payer OTHER, MEDICAID ==
[~2016-10-20] VITALS: Ht 162.6 cm; Wt 75.0 kg
[~2016-10-20 13:59] MED LIST changes: -MIRT15TA7 PO
--- NOTE | 2016-10-20 14:05 | NUR ---
AAOX3, CAME TO ER C/O SOB, BILATERAL LEG PAIN, LACERATION TO R GREAT TOE AND R PLANTAR AREA S/P FALL. SKIN IS WARM AND DRY. TACHYPNEIC. SPO2=98% ON RA. AWAITING MD FOR EVAL.
[2016-10-20] MEDS ORDERED: MORPHINE SULFATE INJ 2 MG/ML DISP.SYRIN IV ONE (14:30)
[2016-10-20] MEDS ORDERED: ONDANSETRON HCL/PF 4 MG/2 ML VIAL IVP ONE (14:30)
[2016-10-20] MEDS ORDERED: ASPIRIN 81 MG TAB.CHEW PO ONE (14:30)
[2016-10-20 14:44] LABS: BASOPHILS # (AUTO) 0.1 /CMM (0.0-0.2); BASOPHILS % (AUTO) 1.1 % (0.0-2.0); EOSINOPHILS # (AUTO) 0.4 /CMM (0.0-0.7); EOSINOPHILS % (AUTO) 6.7 % (0.0-6.0); HEMATOCRIT 30 % (39-51); HEMOGLOBIN 10.2 g/dL (13.5-17.5); LYMPHOCYTES # (AUTO) 1.3 /CMM (0.8-4.8); LYMPHOCYTES % (AUTO) 21.1 % (20.0-44.0); MEAN CORPUSCULAR HEMOGLOBIN 31 PG (26.0-33.0); MEAN CORPUSCULAR HGB CONC 34 g/dl (31.0-36.0); MEAN CORPUSCULAR VOLUME 92 fL (80-96); MONOCYTES # (AUTO) 0.6 /CMM (0.1-1.30); MONOCYTES % (AUTO) 8.8 % (2.0-12.0); NEUTROPHILS # (AUTO) 3.9 /CMM (1.8-8.9); NEUTROPHILS % (AUTO) 62.3 % (43.0-81.0); PLATELET COUNT (AUTO) 294 /CMM (150-450); RED BLOOD CELL COUNT(AUTO) 3.25 MIL/uL (4.5-6.0); WHITE BLOOD COUNT (AUTO) 6.3 K/uL (4.3-11.0)
[2016-10-20] MEDS ORDERED: MORPHINE SULFATE INJ 4 MG/ML DISP.SYRIN ONE (14:48)
[2016-10-20] MEDS ORDERED: ONDANSETRON HCL/PF 4 MG/2 ML VIAL ONE (14:48)
[2016-10-20] MEDS ORDERED: ASPIRIN 81 MG TAB.CHEW ONE (14:48)
--- NOTE | 2016-10-20 14:48 | NUR ---
PATIENT TRANSPORTED FOR XRAY
[2016-10-20 14:52] LABS: CALCIUM, SERUM 8.1 mg/dL (8.5-10.1); CARBON DIOXIDE 20 mmol/L (21-32); CHLORIDE 105 mmol/L (98-107); CREATININE 1.5 mg/dL (0.6-1.3); GLUCOSE 105 mg/dL (74-106); POTASSIUM 3.9 mmol/L (3.5-5.1); SODIUM SERUM 136 mmol/L (136-145); UREA NITROGEN, BLOOD 28 mg/dL (7-18)
[2016-10-20 14:53] LABS: INR 0.99 (0.87-1.13); PROTHROMBIN TIME 10.3 SECS (9.5-12.7)
[2016-10-20 14:55] LABS: ACETAMINOPHEN 7 ug/ml (10-30); ALCOHOL, BLOOD < 3 mg/dL (0-0)
[2016-10-20 14:56] LABS: SALICYLATE 1.9 mg/dL (2.8-20.0)
[2016-10-20 14:58] LABS: ALANINE AMINOTRANSFERASE 47 U/L (12-78); ALBUMIN 3.7 g/dL (3.4-5.0); ALKALINE PHOSPHATASE 70 U/L (46-116); ASPARTATE AMINOTRANSFERASE 73 U/L (15-37); BILIRUBIN,DIRECT 0.1 mg/dL (0.0-0.2); BILIRUBIN,TOTAL 0.3 mg/dL (0.2-1.0); TOTAL PROTEIN, SERUM 7.2 g/dL (6.4-8.2)
[2016-10-20 15:00] LABS: TROPONIN I < 0.017 ng/mL (0.00-0.056)
[2016-10-20] MEDS ORDERED: FUROSEMIDE 40 MG/4 ML VIAL IV ONE (15:30)
--- NOTE | 2016-10-20 15:30 | NUR ---
GRANT WRITER AT
[2016-10-20] MEDS ORDERED: FUROSEMIDE 40 MG/4 ML VIAL ONE (15:39)
[2016-10-20 16:00] VITALS: BP 123/72
--- NOTE | 2016-10-20 16:12 | NUR ---
TELE 309-1. NURSE LIDYA
--- NOTE | 2016-10-20 16:14 | NUR ---
CALLED [employer], CUSHION MAKER HAND WAS PAGED.
--- NOTE | 2016-10-20 16:32 | NUR ---
REPORT GIVEN TO MARLINE BOSE FOR [facility] TELE 309-1
--- NOTE | 2016-10-20 16:36 | NUR ---
DR EDMOND ON THE PHONE WITH DR LARES.
[2016-10-20] MEDS ORDERED: NITROGLYCERIN 0.4 MG/TAB BOTTLE SL PRN (17:30)
[2016-10-20] MEDS: ENOXAPARIN SODIUM 40 MG/0.4 ML DISP.SYRIN SQ SCH (17:39)
--- NOTE | 2016-10-20 17:40 | NUR ---
GENERAL ACCOUNTING MANAGER NOTES RECEIVED PATIENT VIA GURNEY FROM ER, PATIENT ORIENTED TO ROOM, BED IN LOW LOCKED POSITION. ANNIKA LIGHT WITHIN REACH. PATIENT ALERT, ORIENTED X3 NO SOB OR ACUTE DISTRESS NOTED. PATIENT REPORTS FALLING AT HOME AND HITTING HIS RIGHT FOOT. NOTED LACERATION ON RIGHT FOOT AND GREAT TOE, NO BLEEDING NOTED. PERIPHERAL IV INTACT PATENT. WILL CONTINUE TO MONITOR.
[2016-10-20] MEDS ORDERED: DEXTROSE 50%-WATER 50 ML DISP.SYRIN IV PRN (18:00)
[2016-10-20] MEDS ORDERED: INSULIN REGULAR, HUMAN 100 UNIT/ML 3 ML VIAL SQ PRN (18:00)
[2016-10-20] MEDS ORDERED: *INSULIN REGULAR(HUMULIN R)HUM 100 UNIT/ML VIAL SQ PRN (18:00)
[2016-10-20] MEDS: OXYBUTYNIN CHLORIDE 5 MG TABLET PO SCH (18:32)
[2016-10-20] MEDS: BLOOD SUGAR DIAGNOSTIC 1 EACH STRIP IN SCH ×2 (18:35→22:17)
--- NOTE | 2016-10-20 19:06 | NUR ---
STATUE MAKER NOTES PATIENT IN BED RESTING NO SOB OR ACUTE DISTRESS NOTED. PATIENT COMPLAINS OF PAIN TO LEFT LEG DR. MAYITO PALMER WAITING FOR CALL BACK. PERIPHERAL IV INTACT PATENT. BED IN LOW LOCKED POSITION. BED ALARM ON . WILL ENDORSE TO PM SHIFT GERARDO.
--- NOTE | 2016-10-20 19:30 | NUR ---
TELE/RN RECEIVE PATIENT AWAKE, ALERT, ORIENTED, COMFORTABLE, C/O PAIN 8/10 IN RT. LEG, WILL GET ORDER FOR PAIN MED, NO DISTRESS NOTED, CALL LIGHT IN REACH. WILL MONITOR.
[2016-10-20 20:00] VITALS: BP 121/74
[2016-10-20] MEDS ORDERED: HYDROCODONE/APAP 10/325MG 1 EA TABLET ONE (21:16)
[2016-10-20] MEDS: HYDROCODONE/APAP 10/325MG 1 EA TABLET PO PRN (21:18)
[2016-10-20] MEDS: GABAPENTIN 300 MG CAPSULE PO SCH (22:17)
--- NOTE | 2016-10-20 22:23 | NUR ---
TELE/RN BLOOD SUGAR 144, REFUSED INSULIN " I DON'T TAKE INSULIN, I AM BORDERLINE" PER PATIENT.
[2016-10-20] MEDS ORDERED: TEMAZEPAM 15 MG CAPSULE ONE (23:38)
[2016-10-20] MEDS: TEMAZEPAM 15 MG CAPSULE PO PRN (23:43)
--- NOTE | 2016-10-20 23:44 | NUR ---
TELE/RN RESTORIL 30 MG PO WAS GIVEN ORDERED PER PATIENT'S REQUEST FOR SLEEP. WILL MONITOR.
[2016-10-21] VITALS: BP 128/78
[2016-10-21] MEDS ORDERED: HYDROCODONE/APAP 10/325MG 1 EA TABLET ONE ×2 (00:55→04:56)
[2016-10-21] MEDS: HYDROCODONE/APAP 10/325MG 1 EA TABLET PO PRN ×4 (00:58→14:40)
[2016-10-21 04:24] VITALS: BP 121/85
[2016-10-21 06:42] LABS: BASOPHILS % (AUTO) 0.9 % (0.0-2.0); EOSINOPHILS # (AUTO) 0.5 /CMM (0.0-0.7); EOSINOPHILS % (AUTO) 9.9 % (0.0-6.0); HEMATOCRIT 31 % (39-51); HEMOGLOBIN 10.4 g/dL (13.5-17.5); LYMPHOCYTES # (AUTO) 1.7 /CMM (0.8-4.8); LYMPHOCYTES % (AUTO) 30.9 % (20.0-44.0); MEAN CORPUSCULAR HEMOGLOBIN 31 PG (26.0-33.0); MEAN CORPUSCULAR HGB CONC 33 g/dl (31.0-36.0); MEAN CORPUSCULAR VOLUME 92 fL (80-96); MONOCYTES # (AUTO) 0.6 /CMM (0.1-1.30); MONOCYTES % (AUTO) 11.1 % (2.0-12.0); NEUTROPHILS # (AUTO) 2.6 /CMM (1.8-8.9); NEUTROPHILS % (AUTO) 47.2 % (43.0-81.0); PLATELET COUNT (AUTO) 278 /CMM (150-450); RDW COEFFICIENT OF VARIATION 17.2 (11.5-15.0); RED BLOOD CELL COUNT(AUTO) 3.38 MIL/uL (4.5-6.0); WHITE BLOOD COUNT (AUTO) 5.4 K/uL (4.3-11.0)
--- NOTE | 2016-10-21 06:58 | NUR ---
TELE/RN PATIENT AWAKE, ALERT, TALKING TO SOMEBODY ON THE PHONE. ALL NEEDS ATTENDED AT THIS TIME. WILL CONTINUE TO MONITOR.
[2016-10-21 07:04] LABS: ALANINE AMINOTRANSFERASE 42 U/L (12-78); ALBUMIN 3.5 g/dL (3.4-5.0); ALKALINE PHOSPHATASE 68 U/L (46-116); ASPARTATE AMINOTRANSFERASE 40 U/L (15-37); B-TYPE NATRIURETIC PEPTIDE 363 PG/ML (0-125); BILIRUBIN,TOTAL 0.2 mg/dL (0.2-1.0); CALCIUM, SERUM 8.5 mg/dL (8.5-10.1); CARBON DIOXIDE 25 mmol/L (21-32); CHLORIDE 107 mmol/L (98-107); CREATININE 1.6 mg/dL (0.6-1.3); GLUCOSE 124 mg/dL (74-106); POTASSIUM 3.8 mmol/L (3.5-5.1); SODIUM SERUM 142 mmol/L (136-145); TOTAL PROTEIN, SERUM 7.2 g/dL (6.4-8.2); UREA NITROGEN, BLOOD 21 mg/dL (7-18)
[2016-10-21 07:09] LABS: CHOLESTEROL 151 mg/dL (<200); CREATINE KINASE, TOTAL 559 U/L (39-308); HDL CHOLESTEROL 60 mg/dL (40-60); LDL 69 mg/dL (0-99); TRIGLYCERIDES 113 mg/dL (30-150); TROPONIN I < 0.017 ng/mL (0.00-0.056)
[2016-10-21 07:15] VITALS: BP 151/84
[2016-10-21] MEDS: BLOOD SUGAR DIAGNOSTIC 1 EACH STRIP IN SCH ×4 (07:30→21:37)
--- NOTE | 2016-10-21 07:30 | NUR ---
RN NOTES RECEIVE PATIENT AWAKE, ALERT, ORIENTED X 3, NO ACUTE DISTRESS, NO SOB NOTED. IV SITE INTACT AND PATENT. KEPT PATIENT SAFE AND COMFORTABLE. BED IN LOWEST POSITION, LOCKED, SIDERAILS UPX2, CALL LIGHT IN REACH. WILL MONITOR ACCORDINGLY.
[2016-10-21 08:00] VITALS: BP 151/84
[2016-10-21] MEDS: ATORVASTATIN 40 MG TABLET PO SCH (08:34)
[2016-10-21] MEDS: PANTOPRAZOLE 40 MG TABLET.DR PO SCH (08:34)
[2016-10-21] MEDS: TOPIRAMATE 100 MG TABLET PO SCH ×2 (08:35→18:17)
[2016-10-21] MEDS: CHOLECALCIFEROL 1,000 UNIT TABLET (VIT D3) PO SCH (08:35)
[2016-10-21] MEDS: OXYBUTYNIN CHLORIDE 5 MG TABLET PO SCH ×2 (08:35→18:17)
[2016-10-21] MEDS: buPROPion SR 150 MG TABLET.ER PO SCH (08:35)
[2016-10-21] MEDS: ASPIRIN EC 81 MG TABLET.DR PO SCH (08:36)
[2016-10-21] MEDS: BENAZEPRIL HCL 20 MG TABLET PO SCH (08:36)
[2016-10-21] MEDS: VITAMIN B COMP W-C 1 TAB TABLET PO SCH (08:37)
[2016-10-21] MEDS: CARVEDILOL 3.125 MG TABLET PO SCH ×2 (08:37→18:18)
[2016-10-21] MEDS: CITALOPRAM HYDROBROMIDE 20 MG TABLET PO SCH (08:38)
[2016-10-21 08:46] LABS: CREATINE KINASE MB 6.5 ng/mL (0-3.6)
[2016-10-21] MEDS ORDERED: Medication Not On Formulary EA (Omega-3 Fatty Acids (Fish Oil) 1,000 MG) PO SCH (09:00)
[2016-10-21] MEDS ORDERED: FUROSEMIDE 40 MG/4 ML VIAL IV SCH (09:00)
[2016-10-21] MEDS ORDERED: METFORMIN 500 MG TABLET PO SCH (09:00)
[2016-10-21] MEDS: DOLUTEGRAVIR PO SCH (10:39)
[2016-10-21] MEDS: ABACAVIR PO SCH (10:39)
[2016-10-21] MEDS: LAMIVUDI PO SCH (10:39)
[2016-10-21 16:00] VITALS: BP 140/91
[2016-10-21] MEDS ORDERED: ACETAMINOPHEN 325 MG TABLET PO PRN (17:00)
[2016-10-21] MEDS ORDERED: oxyCODONE IR immediate release 5 MG CAPSULE PO PRN (17:00)
[2016-10-21] MEDS: GABAPENTIN 300 MG CAPSULE PO SCH ×2 (18:17→21:28)
[2016-10-21] MEDS: LIDOCAINE 5% (PATCH) 1 EA PATCH TP SCH (18:19)
[2016-10-21] MEDS: ENOXAPARIN SODIUM 40 MG/0.4 ML DISP.SYRIN SQ SCH (18:19)
[2016-10-21 18:48] LABS: CREATININE, URINE 28.6 MG/DL (30.0-125.0); URINE TOTAL PROTEIN 7.5 mg/dL (0-11.9)
--- NOTE | 2016-10-21 19:00 | NUR ---
RN NOTES PATIENT IN BED RESTING. NO ACUTE DISTRESS, NO SOB NOTED. ALL NEEDS ATTENDED AND PROVIDED. BED IN LOW POSITION, LOCKED, SIDERAILS UP X 2, CALL LIGHT IN REACH. ENDORSED TO NIGHT RN FOR GERARDO.
[2016-10-21 19:10] LABS: APPEARANCE,URINE CLEAR (CLEAR); BILIRUBIN,URINE NEGATIVE (NEGATIVE); BLOOD, URINE NEGATIVE Ery/uL (NEGATIVE); COLOR,URINE YELLOW (YELLOW); KETONES,URINE NEGATIVE (NEGATIVE); LEUKOCYTE ESTERASE ,URINE NEGATIVE (NEGATIVE); NITRITE, URINE NEGATIVE (NEGATIVE); PROTEIN,URINE NEGATIVE (NEGATIVE); UGLUCOSE NEGATIVE (NEGATIVE); UROBILINOGEN,URINE 0.2 EU/dL (0.2)
[2016-10-21 19:43] LABS: EOSINOPHIL,URINE None Seen
[2016-10-21 20:00] VITALS: BP 133/80
[2016-10-21] MEDS: oxyCODONE IR immediate release 5 MG CAPSULE PO PRN (20:17)
--- NOTE | 2016-10-21 20:21 | NUR ---
MS/RN C/O PAIN LEFT LEG 8/, OXY IR 10 PO WAS GIVEN. WILL MONITOR.
[2016-10-21] MEDS: TEMAZEPAM 15 MG CAPSULE PO PRN (21:28)
--- NOTE | 2016-10-21 21:30 | NUR ---
MS/RN VERBALIZED A COMFORTABLE PAIN LEVEL AT THIS TIME.
[2016-10-22] MEDS: oxyCODONE IR immediate release 5 MG CAPSULE PO PRN ×4 (01:54→21:56)
--- NOTE | 2016-10-22 06:20 | NUR ---
MS/RN PATIENT IS DOZING INTERMITTENTLY AT THIS TIME, PATIENT HAD AN ON AND OFF SLEEP THE WHOLE SHIFT AND MEDICATED WITH PAIN MEDICATION ORDERED. ALL NEEDS ATTENDED AT THIS TIME. WILL CONTINUE TO MONITOR.
[2016-10-22 06:28] LABS: BASOPHILS # (AUTO) 0.1 /CMM (0.0-0.2); BASOPHILS % (AUTO) 0.9 % (0.0-2.0); EOSINOPHILS # (AUTO) 0.6 /CMM (0.0-0.7); EOSINOPHILS % (AUTO) 9.4 % (0.0-6.0); HEMATOCRIT 34 % (39-51); HEMOGLOBIN 11.3 g/dL (13.5-17.5); LYMPHOCYTES # (AUTO) 1.8 /CMM (0.8-4.8); LYMPHOCYTES % (AUTO) 28.4 % (20.0-44.0); MEAN CORPUSCULAR HEMOGLOBIN 31 PG (26.0-33.0); MEAN CORPUSCULAR HGB CONC 34 g/dl (31.0-36.0); MEAN CORPUSCULAR VOLUME 92 fL (80-96); MONOCYTES # (AUTO) 0.7 /CMM (0.1-1.30); MONOCYTES % (AUTO) 10.9 % (2.0-12.0); NEUTROPHILS # (AUTO) 3.3 /CMM (1.8-8.9); NEUTROPHILS % (AUTO) 50.4 % (43.0-81.0); PLATELET COUNT (AUTO) 299 /CMM (150-450); RDW COEFFICIENT OF VARIATION 16.5 (11.5-15.0); RED BLOOD CELL COUNT(AUTO) 3.66 MIL/uL (4.5-6.0); WHITE BLOOD COUNT (AUTO) 6.5 K/uL (4.3-11.0)
[2016-10-22 06:50] LABS: PHOSPHORUS 3.9 mg/dL (2.5-4.9)
--- NOTE | 2016-10-22 07:30 | NUR ---
RN MS NOTES PT IN BED, RESTING, NO COMPLAINT OF PAIN AT THIS TIME, BREATHING PATTERN NORMAL, CALL LIGHT WITHIN REACH, NEEDS ATTENDED.
[2016-10-22] MEDS: BLOOD SUGAR DIAGNOSTIC 1 EACH STRIP IN SCH ×4 (07:41→21:39)
[2016-10-22 08:00] VITALS: BP 150/92
[2016-10-22] MEDS ORDERED: FLUCONAZOLE (100 MG) 100 MG TABLET PO SCH (09:00)
[2016-10-22] MEDS: GABAPENTIN 300 MG CAPSULE PO SCH ×3 (09:25→21:41)
[2016-10-22] MEDS: POTASSIUM CHLORIDE 20 MEQ TAB.PRT.SR PO SCH (09:26)
[2016-10-22] MEDS: ATORVASTATIN 40 MG TABLET PO SCH (09:26)
[2016-10-22] MEDS: ASPIRIN EC 81 MG TABLET.DR PO SCH (09:26)
[2016-10-22] MEDS: OXYBUTYNIN CHLORIDE 5 MG TABLET PO SCH ×2 (09:27→16:49)
[2016-10-22] MEDS: PANTOPRAZOLE 40 MG TABLET.DR PO SCH (09:27)
[2016-10-22] MEDS: CHOLECALCIFEROL 1,000 UNIT TABLET (VIT D3) PO SCH (09:27)
[2016-10-22] MEDS: BENAZEPRIL HCL 20 MG TABLET PO SCH (09:28)
[2016-10-22] MEDS: TOPIRAMATE 100 MG TABLET PO SCH ×2 (09:28→16:48)
[2016-10-22] MEDS: FUROSEMIDE 20 MG TABLET PO SCH (09:28)
[2016-10-22] MEDS: buPROPion SR 150 MG TABLET.ER PO SCH (09:28)
[2016-10-22] MEDS: CARVEDILOL 3.125 MG TABLET PO SCH ×2 (09:29→16:50)
[2016-10-22] MEDS: VITAMIN B COMP W-C 1 TAB TABLET PO SCH (09:29)
[2016-10-22] MEDS: CITALOPRAM HYDROBROMIDE 20 MG TABLET PO SCH (09:29)
[2016-10-22] MEDS: LAMIVUDI PO SCH (09:30)
[2016-10-22] MEDS: ABACAVIR PO SCH (09:30)
[2016-10-22] MEDS: DOLUTEGRAVIR PO SCH (09:30)
[2016-10-22 16:00] VITALS: BP 143/81
[2016-10-22] MEDS: LIDOCAINE 5% (PATCH) 1 EA PATCH TP SCH (17:10)
[2016-10-22] MEDS: ENOXAPARIN SODIUM 40 MG/0.4 ML DISP.SYRIN SQ SCH (17:11)
--- NOTE | 2016-10-22 18:30 | NUR ---
RN MS NOTES PT IN BED, AWAKE, ALERT AND ORIENTED, PAIN MEDICATION GIVEN FOR PAIN MANAGEMENT ORDERED, PM MEDS GIVEN ORDERED, COMPLIANT WITH MEDS AND INTERVENTIONS, ALL NEEDS ATTENDED.
--- NOTE | 2016-10-22 19:15 | NUR ---
MS RN NOTES RECEIVED PT SITTING UP IN A CHAIR. A/0 X4 . VERBALLY RESPONSIVE. NO DISTRESS, NO SOB. EATING SNACKS AT TIS TIME ( PUDDING ). IV SITE ON LFA INTACT AND PATENT, NO INFILTRATION NOTED. NO S/S OF HYPO/ HYPERGLYCEMIA NOTED. DENIES ANY PAIN AT THIS TIME. SAFETY PRECAUTIONS OBSERVED. CALL LIGHT WITHIN REACH. WILL CONT TO MONITOR.
[2016-10-22 20:00] VITALS: BP 119/69
[2016-10-23] MEDS: TEMAZEPAM 15 MG CAPSULE PO PRN (01:37)
[2016-10-23] MEDS: BLOOD SUGAR DIAGNOSTIC 1 EACH STRIP IN SCH ×2 (05:40→12:00)
--- NOTE | 2016-10-23 06:24 | NUR ---
MS RN NOTES PT IN BED, ASLEEP AT THIS TIME, AROUSES EASILY. A/O X 4. VERBALLY RESPONSIVE. NO DISTRESS AT THIS TIME. NO C/O PAIN OR DISCOMFORT. PT ABLE TO AMBULATE AND GO TO THE BATHROOM WITH CANE. IV SITE ON LFA INTACT AND PATENT. NO S./S OF HYPO/ HYPERGLYCEMIA NOTED. MULTIPLE SNACKS PROVIDED TO THE PT. ALL NEEDS ATTENDED AND MET. KEPT COMFORTABLE. CALL LIGHT WITHIN REACH. SAFETY PRECAUTIONS OBSERVED. WILL ENDORSE TO NEXT SHIFT FOR GERARDO.
--- NOTE | 2016-10-23 07:30 | NUR ---
RN MS NOTES PT IN BED, ASLEEP, EASY TO AROUSE, NOT IN DISTRESS, NO SIGN OF PAIN, CALL LIGHT WITHIN REACH, KEPT WARM AND COMFORTABLE.
[2016-10-23 08:00] VITALS: BP 139/78
[2016-10-23] MEDS: GABAPENTIN 300 MG CAPSULE PO SCH (09:19)
[2016-10-23] MEDS: POTASSIUM CHLORIDE 20 MEQ TAB.PRT.SR PO SCH (09:19)
[2016-10-23] MEDS: CARVEDILOL 3.125 MG TABLET PO SCH (09:19)
[2016-10-23] MEDS: buPROPion SR 150 MG TABLET.ER PO SCH (09:20)
[2016-10-23 09:21] VITALS: BP 136/78
[2016-10-23] MEDS: ASPIRIN EC 81 MG TABLET.DR PO SCH (09:21)
[2016-10-23] MEDS: ATORVASTATIN 40 MG TABLET PO SCH (09:21)
[2016-10-23] MEDS: FUROSEMIDE 20 MG TABLET PO SCH (09:21)
[2016-10-23] MEDS: OXYBUTYNIN CHLORIDE 5 MG TABLET PO SCH (09:21)
[2016-10-23] MEDS: BENAZEPRIL HCL 20 MG TABLET PO SCH (09:21)
[2016-10-23] MEDS: CHOLECALCIFEROL 1,000 UNIT TABLET (VIT D3) PO SCH (09:21)
[2016-10-23] MEDS: VITAMIN B COMP W-C 1 TAB TABLET PO SCH (09:21)
[2016-10-23] MEDS: TOPIRAMATE 100 MG TABLET PO SCH (09:21)
[2016-10-23] MEDS: CITALOPRAM HYDROBROMIDE 20 MG TABLET PO SCH (09:22)
[2016-10-23] MEDS: LAMIVUDI PO SCH (09:22)
[2016-10-23] MEDS: PANTOPRAZOLE 40 MG TABLET.DR PO SCH (09:22)
[2016-10-23] MEDS: ABACAVIR PO SCH (09:22)
[2016-10-23] MEDS: DOLUTEGRAVIR PO SCH (09:22)
[2016-10-23 12:14] LABS: *SPE A/G RATIO 1.3 (0.7-1.7); *SPE ALBUMIN 3.9 g/dL (2.9-4.4); *SPE ALPHA-1-GLOBULIN 0.1 g/dL (0.0-0.4); *SPE ALPHA-2-GLOBULIN 0.8 g/dL (0.4-1.0); *SPE GLOBULIN, TOTAL 3.1 g/dL (2.2-3.9); *SPE M-SPIKE Not Observed g/dL (Not Observed); *SPEGAMMA GLOBULIN 1.3 g/dL (0.4-1.8)
[2016-10-23 13:15] LABS: PTH, INTACT 35 pg/mL (15-65)
--- NOTE | 2016-10-23 13:21 | NUR ---
RN MS NOTES PT IN BED, AWAKE, NO COMPLAINT OF PAIN, RESPIRATIONS NORMAL AND NOT LABORED, SEEN BY [facility] CONTACT CENTER ASSISTANT, DISCHARGE ORDER GIVEN, PT TO BE DISCHARGED HOME WITH HOME HEALTH FOLLOW UP, DISCHARGE AND MEDICATION INSTRUCTIONS GIVEN TO PT, VERBALIZED UNDERSTANDING, PT TO SEE DR. DALEY OUT PT FOR PAIN MANAGEMENT, BELONGINGS ACCOUNTED FOR, ASSISTED TO HOSPITAL LOBBY VIA WHEELCHAIR, PICKED UP BY FRIEND, LEFT VIA PRIVATE CAR IN STABLE CONDITION.
== END 2016-10-23 13:20 | disposition home health service (06) | DRG 291 ==
LOC: ER 14:06 → TELE 16:45 → MED 10-21 11:26
PROVIDERS: ADMIT Internal Medicine; ATTEND Internal Medicine
DX: I13.0 Hypertensive heart and chronic kidney disease with heart failure and stage 1 through stage 4 chronic kidney disease, or unspecified chronic kidney disease (principal); I50.33 Acute on chronic diastolic (congestive) heart failure; N17.0 Acute kidney failure with tubular necrosis; N18.4 Chronic kidney disease, stage 4 (severe); W19.XXXA Unspecified fall, initial encounter; E11.22 Type 2 diabetes mellitus with diabetic chronic kidney disease; E11.42 Type 2 diabetes mellitus with diabetic polyneuropathy; D64.9 Anemia, unspecified; E78.00 Pure hypercholesterolemia, unspecified; F32.9 Major depressive disorder, single episode, unspecified; G89.29 Other chronic pain; I73.9 Peripheral vascular disease, unspecified; Z79.82 Long term (current) use of aspirin; Z79.84 Long term (current) use of oral hypoglycemic drugs; Z79.899 Other long term (current) drug therapy; Z87.891 Personal history of nicotine dependence; Z85.46 Personal history of malignant neoplasm of prostate; G90.8 Other disorders of autonomic nervous system; F19.21 Other psychoactive substance dependence, in remission; D63.8 Anemia in other chronic diseases classified elsewhere; M79.604 Pain in right leg; Y92.009 Unspecified place in unspecified non-institutional (private) residence as the place of occurrence of the external cause
CPT/HCPCS: 36415; 71100-TC; 73630-TC; 76770-TC; 80048-TC; 80053-TC; 80061-TC; 80076-TC; 80305; 81000-TC; 82550-TC; 82553-TC; 82570-TC; 82962-TC; 83735-TC; 83880; 83970; 84100-TC; 84155; 84155-TC; 84165; 84300-TC; 84484-TC; 85025-TC; 85730-TC; 87081-TC; 93925-TC; 97116-TC; 97530-TC; A4606; G0480; J1650; J1815; J1940; J2270; J2405; Z7610

== ENCOUNTER 2016-11-18 17:01 | Emergency (ER) | payer OTHER, MEDICAID ==
[~2016-11-18] VITALS: Ht 167.6 cm; Wt 74.8 kg
--- NOTE | 2016-11-18 17:05 | NUR ---
PATIENT PRESENTS TO ER C/O SOB AND LEFT SIDED CHEST PAIN SINCE YESTERDAY,SPEAKING FULL SENTENCES. PATIENT ALSO C/O ABDOMINAL PAIN. PATIENT IS A/OX 4. BREATHING EVEN AND UNLABORED. NO SOB. VITALS STABLE. SKIN WARM AND DRY. SAFETY AND COMFORT MEASURES IN PLACE. AWAITING MD ORDERS.
[2016-11-18] MEDS ORDERED: ONDANSETRON HCL/PF 4 MG/2 ML VIAL IVP ONE (17:30)
[2016-11-18] MEDS ORDERED: MORPHINE SULFATE INJ 2 MG/ML DISP.SYRIN IV ONE (17:30)
[2016-11-18] MEDS ORDERED: ONDANSETRON HCL/PF 4 MG/2 ML VIAL ONE (17:34)
[2016-11-18] MEDS ORDERED: MORPHINE SULFATE INJ 4 MG/ML DISP.SYRIN ONE (17:34)
[2016-11-18 17:37] LABS: BASOPHILS # (AUTO) 0.3 /CMM (0.0-0.2); EOSINOPHILS # (AUTO) 0.4 /CMM (0.0-0.7); EOSINOPHILS % (AUTO) 4.2 % (0.0-6.0); HEMATOCRIT 35 % (39-51); HEMOGLOBIN 11.7 g/dL (13.5-17.5); LYMPHOCYTES # (AUTO) 2.2 /CMM (0.8-4.8); LYMPHOCYTES % (AUTO) 20.4 % (20.0-44.0); MEAN CORPUSCULAR HEMOGLOBIN 30 PG (26.0-33.0); MEAN CORPUSCULAR HGB CONC 34 g/dl (31.0-36.0); MEAN CORPUSCULAR VOLUME 90 fL (80-96); MONOCYTES # (AUTO) 0.8 /CMM (0.1-1.30); MONOCYTES % (AUTO) 7.3 % (2.0-12.0); NEUTROPHILS # (AUTO) 6.9 /CMM (1.8-8.9); NEUTROPHILS % (AUTO) 65.1 % (43.0-81.0); PLATELET COUNT (AUTO) 293 /CMM (150-450); RED BLOOD CELL COUNT(AUTO) 3.85 MIL/uL (4.5-6.0); WHITE BLOOD COUNT (AUTO) 10.6 K/uL (4.3-11.0)
--- NOTE | 2016-11-18 17:39 | NUR ---
NEW IV STARTED ON RIGHT HAND, 20 G. BLOOD DRAWN AND SENT TO LAB. PATIENT MEDICATED PER MD ORDERS.
[2016-11-18 17:47] LABS: CALCIUM, SERUM 8.5 mg/dL (8.5-10.1); CARBON DIOXIDE 23 mmol/L (21-32); CHLORIDE 108 mmol/L (98-107); GLUCOSE 318 mg/dL (74-106); POTASSIUM 4.2 mmol/L (3.5-5.1); SODIUM SERUM 142 mmol/L (136-145); UREA NITROGEN, BLOOD 8 mg/dL (7-18)
[2016-11-18 17:50] LABS: INR 0.91 (0.87-1.13); PROTHROMBIN TIME 9.5 SECS (9.5-12.7)
[2016-11-18 17:53] LABS: ALANINE AMINOTRANSFERASE 87 U/L (12-78); ALBUMIN 3.3 g/dL (3.4-5.0); ALKALINE PHOSPHATASE 81 U/L (46-116); ASPARTATE AMINOTRANSFERASE 38 U/L (15-37); BILIRUBIN,DIRECT 0.1 mg/dL (0.0-0.2); BILIRUBIN,TOTAL 0.2 mg/dL (0.2-1.0); LIPASE 140 U/L (73-393); TOTAL PROTEIN, SERUM 7.1 g/dL (6.4-8.2)
--- NOTE | 2016-11-18 17:58 | NUR ---
PT TO CTSCAN
--- NOTE | 2016-11-18 18:00 | NUR ---
PATIENT TAKEN TO CT VIA STRETCHER.
--- NOTE | 2016-11-18 18:15 | NUR ---
PATIENT RETURNED FROM CT.
--- NOTE | 2016-11-18 18:29 | NUR ---
URINE SENT TO LAB
[2016-11-18 18:46] LABS: APPEARANCE,URINE Clear (CLEAR); BILIRUBIN,URINE Negative (NEGATIVE); BLOOD, URINE Negative Ery/uL (NEGATIVE); COLOR,URINE Yellow (YELLOW); KETONES,URINE Negative (NEGATIVE); LEUKOCYTE ESTERASE ,URINE Negative (NEGATIVE); NITRITE, URINE Negative (NEGATIVE); PROTEIN,URINE Negative (NEGATIVE); UGLUCOSE 500 MG/DL mg/dL (NEGATIVE); UROBILINOGEN,URINE 0.2 EU/dL (0.2)
--- NOTE | 2016-11-18 20:07 | NUR ---
IV removed. Catheter intact and site benign. Pressure and 4x4 applied to site. No bleeding noted.
--- NOTE | 2016-11-18 20:08 | NUR ---
Patient discharged to home in stable condition. Written and verbal after care instructions given. Patient verbalizes understanding of instruction.
[2016-11-18 20:09] VITALS: BP 135/94
== END 2016-11-18 20:10 | disposition home or self-care (01) ==
LOC: ER 17:03
DX: R10.9 Unspecified abdominal pain (principal); D64.9 Anemia, unspecified; E11.22 Type 2 diabetes mellitus with diabetic chronic kidney disease; E78.00 Pure hypercholesterolemia, unspecified; F32.9 Major depressive disorder, single episode, unspecified; I13.0 Hypertensive heart and chronic kidney disease with heart failure and stage 1 through stage 4 chronic kidney disease, or unspecified chronic kidney disease; I50.9 Heart failure, unspecified; I70.0 Atherosclerosis of aorta; I71.4 Abdominal aortic aneurysm, without rupture; K40.90 Unilateral inguinal hernia, without obstruction or gangrene, not specified as recurrent; K57.30 Diverticulosis of large intestine without perforation or abscess without bleeding; K59.00 Constipation, unspecified; N18.9 Chronic kidney disease, unspecified; Z79.82 Long term (current) use of aspirin; Z85.46 Personal history of malignant neoplasm of prostate
CPT/HCPCS: 36415; 71010; 74176; 80048; 80076; 80305; 81001; 82962; 83690; 85025; 85730; 96374; 96375; 99285; A4606; G0480; J2270; J2405; 81000-TC; Z7610

== ENCOUNTER 2016-11-28 10:53 | Inpatient (IN) | payer OTHER, MEDICAID ==
[~2016-11-28] VITALS: Ht 162.6 cm; Wt 70.3 kg
[2016-11-28] MEDS ORDERED: ONDANSETRON HCL/PF 4 MG/2 ML VIAL ONE (11:09)
[2016-11-28] MEDS ORDERED: HYDROMORPHONE INJ 2 MG/ML DISP.SYRIN ONE (11:10)
--- NOTE | 2016-11-28 11:15 | NUR ---
[id number]: LEFT HIP PAIN X 2 DAYS. DENIES FALL/INJURY, NAD NOTED, VSS, RESP EVEN AND UNLABORED. WAITING FOR MD MARQUEZ.
[2016-11-28] MEDS ORDERED: ERGO50003 PO (11:21)
[2016-11-28] MEDS ORDERED: MULT1TAB62 PO (11:21)
[2016-11-28] MEDS ORDERED: ONDANSETRON HCL/PF - ER 4 MG/2 ML VIAL IV ONE (11:30)
[2016-11-28] MEDS ORDERED: HYDROMORPHONE 1 MG/1 ML DISP.SYRIN IV ONE ×3 (11:30→14:00)
[2016-11-28] MEDS ORDERED: IV NS 0.9% 500 ML IV ONE (11:30)
[2016-11-28 11:39] LABS: BASOPHILS % (AUTO) 0.6 % (0.0-2.0); EOSINOPHILS # (AUTO) 0.4 /CMM (0.0-0.7); EOSINOPHILS % (AUTO) 5.4 % (0.0-6.0); HEMATOCRIT 38 % (39-51); HEMOGLOBIN 12.7 g/dL (13.5-17.5); LYMPHOCYTES % (AUTO) 27.9 % (20.0-44.0); MEAN CORPUSCULAR HEMOGLOBIN 30 PG (26.0-33.0); MEAN CORPUSCULAR HGB CONC 33 g/dl (31.0-36.0); MEAN CORPUSCULAR VOLUME 90 fL (80-96); MONOCYTES # (AUTO) 0.7 /CMM (0.1-1.30); MONOCYTES % (AUTO) 10.2 % (2.0-12.0); NEUTROPHILS % (AUTO) 55.9 % (43.0-81.0); PLATELET COUNT (AUTO) 264 /CMM (150-450); RDW COEFFICIENT OF VARIATION 16.1 (11.5-15.0); RED BLOOD CELL COUNT(AUTO) 4.22 MIL/uL (4.5-6.0); WHITE BLOOD COUNT (AUTO) 7.1 K/uL (4.3-11.0)
[2016-11-28 11:50] LABS: CALCIUM, SERUM 8.8 mg/dL (8.5-10.1); CARBON DIOXIDE 26 mmol/L (21-32); CHLORIDE 106 mmol/L (98-107); CREATININE 0.9 mg/dL (0.6-1.3); GLUCOSE 126 mg/dL (74-106); POTASSIUM 4.1 mmol/L (3.5-5.1); SODIUM SERUM 142 mmol/L (136-145); UREA NITROGEN, BLOOD 15 mg/dL (7-18)
[2016-11-28 11:56] LABS: ALANINE AMINOTRANSFERASE 69 U/L (12-78); ALBUMIN 3.8 g/dL (3.4-5.0); ALKALINE PHOSPHATASE 170 U/L (46-116); ASPARTATE AMINOTRANSFERASE 26 U/L (15-37); BILIRUBIN,DIRECT 0.1 mg/dL (0.0-0.2); BILIRUBIN,TOTAL 0.4 mg/dL (0.2-1.0); TOTAL PROTEIN, SERUM 8.2 g/dL (6.4-8.2)
[2016-11-28] MEDS ORDERED: HYDROMORPHONE 1 MG/1 ML DISP.SYRIN ONE ×2 (12:45→14:11)
--- NOTE | 2016-11-28 12:48 | NUR ---
PAGED INTERLOCKER PANEL, DR AMBAR MALIK
--- NOTE | 2016-11-28 14:01 | NUR ---
GAVE REPORT TO LIYA
--- NOTE | 2016-11-28 15:00 | NUR ---
ms rn received a new admission from er, 71 year old male awake,alert,oriented x4,complaining of left hip pain,no sob noted, under dr. rodriguez,will monitor patient's condition.
[2016-11-28 16:00] VITALS: BP 146/83
--- NOTE | 2016-11-28 17:00 | NUR ---
ms morataya text dr. rodriguez for orders.
--- NOTE | 2016-11-28 17:45 | NUR ---
ms rn no orders yet, text dr. rodriguez again for orders.
[2016-11-28] MEDS ORDERED: ENOXAPARIN SODIUM 40 MG/0.4 ML DISP.SYRIN SQ SCH (18:00)
[2016-11-28] MEDS ORDERED: ZOLPIDEM TARTRATE 5 MG TABLET PO PRN (18:00)
[2016-11-28] MEDS ORDERED: MAG HYDROX/AL HYDROX/SIMETH 30 ML UDC PO PRN (18:00)
[2016-11-28] MEDS ORDERED: HYDROCODONE/APAP 10/325MG 1 EA TABLET PO PRN (18:00)
[2016-11-28] MEDS ORDERED: HYDROCODONE/APAP 5/325MG 1 EACH TABLET PO PRN (18:00)
[2016-11-28] MEDS ORDERED: MAGNESIUM HYDROXIDE 30 ML UDC PO PRN (18:00)
[2016-11-28] MEDS ORDERED: Z GUARD REMEDY 2 OZ OINT TP PRN (18:00)
[2016-11-28] MEDS ORDERED: ACETAMINOPHEN 325 MG TABLET PO PRN (18:00)
[2016-11-28] MEDS ORDERED: ONDANSETRON HCL/PF 4 MG/2 ML VIAL IVP PRN (18:00)
--- NOTE | 2016-11-28 18:10 | NUR ---
ms rn morphine 2 mg ivp given for pain 8 at left hip.
[2016-11-28] MEDS: MORPHINE SULFATE INJ 2 MG/ML DISP.SYRIN IV PRN ×2 (18:19→22:40)
--- NOTE | 2016-11-28 18:41 | NUR ---
ms rn pain subsided, will endorse to rn office for continuity of care.
[2016-11-28 20:00] VITALS: BP 166/97
--- NOTE | 2016-11-28 21:28 | NUR ---
A/A/O times 4 upset about having to wait for pain meds. Medicated as ordered.
--- NOTE | 2016-11-28 21:50 | NUR ---
Took over patient's care.No unusual signs or symptoms observed or reported,no signs of discomfort or distress.Reported pain.Informed him that I will check to see if his medication was due.It was not so I informed him when I was able to give it,no problems.VS signs taken all are in the normal range except for the BP which is 166/97,will monitor.
[2016-11-28] MEDS ORDERED: GABAPENTIN 300 MG CAPSULE PO SCH (22:00)
[2016-11-28] MEDS ORDERED: ATORVASTATIN 40 MG TABLET PO SCH (22:00)
--- NOTE | 2016-11-28 22:30 | NUR ---
Reported being nations,medicated with Zofran 4 mg ivp,no problems
--- NOTE | 2016-11-28 22:44 | NUR ---
Requested and received pain medication.Medicated with Morphine Sulfate 2 mg ivp,tolerated well.
--- NOTE | 2016-11-29 01:02 | NUR ---
Resting quietly,no problems
[2016-11-29] MEDS: MORPHINE SULFATE INJ 2 MG/ML DISP.SYRIN IV PRN ×2 (03:52→12:40)
[2016-11-29] MEDS ORDERED: PANTOPRAZOLE 40 MG TABLET.DR PO SCH (07:30)
--- NOTE | 2016-11-29 07:35 | NUR ---
AM RN NOTE Received patient sleeping comfortably in his bed no acute distress noted. No SOB noted resp even and non-labored. HL intact and patent. Will continue to monitor. Call light with in reach.
[2016-11-29 07:49] LABS: BASOPHILS % (AUTO) 0.6 % (0.0-2.0); EOSINOPHILS # (AUTO) 0.4 /CMM (0.0-0.7); EOSINOPHILS % (AUTO) 6.7 % (0.0-6.0); HEMATOCRIT 35 % (39-51); HEMOGLOBIN 11.6 g/dL (13.5-17.5); LYMPHOCYTES # (AUTO) 1.8 /CMM (0.8-4.8); LYMPHOCYTES % (AUTO) 30.6 % (20.0-44.0); MEAN CORPUSCULAR HEMOGLOBIN 30 PG (26.0-33.0); MEAN CORPUSCULAR HGB CONC 34 g/dl (31.0-36.0); MEAN CORPUSCULAR VOLUME 90 fL (80-96); MONOCYTES # (AUTO) 0.7 /CMM (0.1-1.30); MONOCYTES % (AUTO) 12.4 % (2.0-12.0); NEUTROPHILS # (AUTO) 2.9 /CMM (1.8-8.9); NEUTROPHILS % (AUTO) 49.7 % (43.0-81.0); PLATELET COUNT (AUTO) 232 /CMM (150-450); RDW COEFFICIENT OF VARIATION 15.9 (11.5-15.0); RED BLOOD CELL COUNT(AUTO) 3.84 MIL/uL (4.5-6.0); WHITE BLOOD COUNT (AUTO) 5.9 K/uL (4.3-11.0)
[2016-11-29 08:00] VITALS: BP 157/99
[2016-11-29] MEDS: CARVEDILOL 3.125 MG TABLET PO SCH ×2 (08:06→16:40)
[2016-11-29 08:30] LABS: CALCIUM, SERUM 8.4 mg/dL (8.5-10.1); CREATININE 1.1 mg/dL (0.6-1.3); GLUCOSE 113 mg/dL (74-106); MAGNESIUM 1.8 mg/dL (1.8-2.4); PHOSPHORUS 4.6 mg/dL (2.5-4.9); UREA NITROGEN, BLOOD 16 mg/dL (7-18)
[2016-11-29 08:32] LABS: CHOLESTEROL 119 mg/dL (<200); HDL CHOLESTEROL 30 mg/dL (40-60); LDL 54 mg/dL (0-99); THYROID STIMULATING HORMONE 3.304 uIU/mL (0.358-3.74); TRIGLYCERIDES 312 mg/dL (30-150)
[2016-11-29 08:47] LABS: CARBON DIOXIDE 26 mmol/L (21-32); CHLORIDE 106 mmol/L (98-107); POTASSIUM 4.1 mmol/L (3.5-5.1); SODIUM SERUM 140 mmol/L (136-145)
[2016-11-29] MEDS ORDERED: BENAZEPRIL HCL 20 MG TABLET PO SCH (09:00)
[2016-11-29] MEDS ORDERED: ASPIRIN EC 81 MG TABLET.DR PO SCH (09:00)
[2016-11-29] MEDS ORDERED: OXYBUTYNIN CHLORIDE 5 MG TABLET PO SCH (09:00)
[2016-11-29] MEDS ORDERED: CITALOPRAM HYDROBROMIDE 20 MG TABLET PO SCH (09:00)
[2016-11-29] MEDS ORDERED: MULTIVIT, IRON, MIN NO. 8, FA 1 TAB PO SCH (09:00)
--- NOTE | 2016-11-29 14:30 | NUR ---
AM RN NOTE Received call from Kayla (Pharmacist) to ask patient if he can provide his home meds for HIV. Per pt his caregiver will bring it tonight. Kayla at pharmacy made aware.
[2016-11-29 16:00] VITALS: BP 130/80
[2016-11-29] MEDS ORDERED: METH4TAB16 PO (16:21)
[2016-11-29 16:40] VITALS: BP 130/80
--- NOTE | 2016-11-29 18:30 | NUR ---
AM RN NOTE Discharge patient to home order given by Dr. Chapin. Discharge instructions and teachings given to patient and he verbalize understanding. Left hip area no skin discoloration noted. Overall skin intact at this time. Will continue to monitor.
--- NOTE | 2016-11-29 18:45 | NUR ---
AM RN NOTE Patient awake, no acute distress noted. Friend Lauro at bedside. HL and ID band removed. Belongings endorsed to patient by GALLERY INTERN. Patient discharged/ left unit at this time with friend and 1 GALLERY INTERN to downstairs with all his belongings.
[2016-12-01] MEDS ORDERED: ERGOCALCIFEROL (VITAMIN D 2) 50,000 UNIT CAPSULE PO SCH (09:00)
[2016-12-03] MEDS ORDERED: FLUCONAZOLE (100 MG) 100 MG TABLET PO SCH (18:00)
== END 2016-11-29 19:00 | disposition home or self-care (01) | DRG 552 ==
LOC: ER 10:55 → MED 13:53
DX: M48.061 Spinal stenosis, lumbar region without neurogenic claudication (principal); E11.9 Type 2 diabetes mellitus without complications; Z85.46 Personal history of malignant neoplasm of prostate; M51.36 Other intervertebral disc degeneration, lumbar region; F19.11 Other psychoactive substance abuse, in remission; F32.9 Major depressive disorder, single episode, unspecified; G89.29 Other chronic pain; I10 Essential (primary) hypertension; Z86.73 Personal history of transient ischemic attack (TIA), and cerebral infarction without residual deficits; Z76.5 Malingerer [conscious simulation]; E78.00 Pure hypercholesterolemia, unspecified
CPT/HCPCS: 36415; 72131-TC; 72170-TC; 72192-TC; 80048-TC; 80061-TC; 80076-TC; 82550-TC; 83735-TC; 84100-TC; 84443-TC; 85025-TC; 87081-TC; A4606; J1170; J1650; J2270; J2405; J7040; Z7610

== ENCOUNTER 2016-12-03 14:42 | Emergency (ER) | payer OTHER, MEDICAID ==
[~2016-12-03] VITALS: Ht 167.6 cm; Wt 83.0 kg
[~2016-12-03 14:42] MED LIST changes: -BUPR150T10 PO; -CHOL100044 PO; +ERGO50003 PO; -METF500T4 PO; +METH4TAB16 PO; +MULT1TAB62 PO; -TOPI-37 PO
--- NOTE | 2016-12-03 14:42 | NUR ---
BIB [facility] C/O FEELING WEAK S/P POSSIBLE OVERDOSE ON PAIN MEDICATION. PT DENIES TAKING MEDICATIONS. AAO X2, FORGETFUL AT TIMES. NAD NOTED. VSS. RR EVEN AND UNLABORED. PENDING MD MARQUEZ.
[2016-12-03] MEDS ORDERED: ALBUTEROL FS 2.5 MG/0.5 ML VIAL.NEB NEB ONE (15:30)
[2016-12-03] MEDS ORDERED: IPRATROPIUM NEB FS 0.5 MG/2.5 ML AMPUL.NEB NEB ONE (15:30)
[2016-12-03] MEDS ORDERED: IV NS 0.9% 1,000 ML BAG IV ONE (15:30)
--- NOTE | 2016-12-03 15:45 | NUR ---
LAB AT BEDSIDE FOR DRAW
[2016-12-03] MEDS ORDERED: IPRATROPIUM NEB FS 0.5 MG/2.5 ML AMPUL.NEB ONE (15:47)
[2016-12-03] MEDS ORDERED: ALBUTEROL FS 2.5 MG/0.5 ML VIAL.NEB ONE (15:47)
[2016-12-03 16:02] LABS: ABG OXYGEN SATURATION 94.5 % (92.0-98.5); ABG PCO2 39.3 mmHg (35.0-45.0); ABG PH 7.334 (7.350-7.450); ABG PO2 82.3 mmHg (75.0-100.0); AaDO2 128.8 mmHg; COHb 0.6 % (0.5-1.5); MetHb 0.3 % (0.0-1.5); O2Hb 93.6 % (94.0-97.0); SITE, ABG Right Radial; VENT MODE, BG NC4L
[2016-12-03 16:12] LABS: BASOPHILS % (AUTO) 0.2 % (0.0-2.0); EOSINOPHILS # (AUTO) 0.4 /CMM (0.0-0.7); EOSINOPHILS % (AUTO) 4.6 % (0.0-6.0); HEMATOCRIT 33 % (39-51); HEMOGLOBIN 10.8 g/dL (13.5-17.5); LYMPHOCYTES # (AUTO) 1.6 /CMM (0.8-4.8); LYMPHOCYTES % (AUTO) 17.2 % (20.0-44.0); MEAN CORPUSCULAR HEMOGLOBIN 30 PG (26.0-33.0); MEAN CORPUSCULAR HGB CONC 33 g/dl (31.0-36.0); MEAN CORPUSCULAR VOLUME 90 fL (80-96); MONOCYTES # (AUTO) 0.9 /CMM (0.1-1.30); MONOCYTES % (AUTO) 9.6 % (2.0-12.0); NEUTROPHILS # (AUTO) 6.3 /CMM (1.8-8.9); NEUTROPHILS % (AUTO) 68.4 % (43.0-81.0); PLATELET COUNT (AUTO) 276 /CMM (150-450); RDW COEFFICIENT OF VARIATION 16.1 (11.5-15.0); RED BLOOD CELL COUNT(AUTO) 3.61 MIL/uL (4.5-6.0); WHITE BLOOD COUNT (AUTO) 9.2 K/uL (4.3-11.0)
[2016-12-03 16:17] LABS: CALCIUM, SERUM 8.9 mg/dL (8.5-10.1); CARBON DIOXIDE 27 mmol/L (21-32); CHLORIDE 108 mmol/L (98-107); CREATININE 1.2 mg/dL (0.6-1.3); GLUCOSE 119 mg/dL (74-106); SODIUM SERUM 142 mmol/L (136-145); UREA NITROGEN, BLOOD 20 mg/dL (7-18)
[2016-12-03 16:23] LABS: TROPONIN I < 0.017 ng/mL (0.00-0.056)
[2016-12-03 16:31] LABS: ALANINE AMINOTRANSFERASE 52 U/L (12-78); ALBUMIN 3.8 g/dL (3.4-5.0); ALCOHOL, BLOOD < 3 mg/dL (0-0); ALKALINE PHOSPHATASE 157 U/L (46-116); ASPARTATE AMINOTRANSFERASE 41 U/L (15-37); BILIRUBIN,DIRECT 0.1 mg/dL (0.0-0.2); BILIRUBIN,TOTAL 0.4 mg/dL (0.2-1.0); TOTAL PROTEIN, SERUM 8.1 g/dL (6.4-8.2)
[2016-12-03 16:35] LABS: ACETAMINOPHEN < 2 ug/ml (10-30); SALICYLATE 1.6 mg/dL (2.8-20.0)
[2016-12-03 17:20] LABS: APPEARANCE,URINE CLEAR (CLEAR); BILIRUBIN,URINE NEGATIVE (NEGATIVE); BLOOD, URINE NEGATIVE Ery/uL (NEGATIVE); COLOR,URINE YELLOW (YELLOW); KETONES,URINE NEGATIVE (NEGATIVE); LEUKOCYTE ESTERASE ,URINE NEGATIVE (NEGATIVE); NITRITE, URINE NEGATIVE (NEGATIVE); PH,URINE 5.5 (5.0-8.0); PROTEIN,URINE NEGATIVE (NEGATIVE); UGLUCOSE NEGATIVE (NEGATIVE); UROBILINOGEN,URINE 0.2 EU/dL (0.2)
--- NOTE | 2016-12-03 18:21 | NUR ---
SPOKE WITH SERAFIN HAULAGE ENGINE OPERATOR [phone]. HE WILL STAFFING RN PT IN 1 HOUR.
[2016-12-03 18:50] VITALS: BP 128/76
== END 2016-12-03 18:52 | disposition home or self-care (01) ==
LOC: ER 14:44
DX: R41.82 Altered mental status, unspecified (principal); T40.601A Poisoning by unspecified narcotics, accidental (unintentional), initial encounter; R06.2 Wheezing; I10 Essential (primary) hypertension; E11.9 Type 2 diabetes mellitus without complications; C61 Malignant neoplasm of prostate; G89.29 Other chronic pain; I25.2 Old myocardial infarction; F17.200 Nicotine dependence, unspecified, uncomplicated; E78.00 Pure hypercholesterolemia, unspecified; Z86.73 Personal history of transient ischemic attack (TIA), and cerebral infarction without residual deficits; Z79.82 Long term (current) use of aspirin; Z79.84 Long term (current) use of oral hypoglycemic drugs; Y92.89 Other specified places as the place of occurrence of the external cause
CPT/HCPCS: 36415; 36600 ×2; 70450; 71010; 80048; 80076; 80305; 80329; 81001; 82140; 82803; 84484; 85025; 93005; 94640 ×2; 96360; 99285; A4606; G0480 ×2; J7030; 81000-TC; Z7610